=== PATIENT | female | born 1980 | race Caucasian/White ===

== ENCOUNTER 2018-02-22 08:33 | Day surgery (SDC) | payer OTHER ==
[~2018-02-22 08:33] MED LIST: ceFAZolin 2 GM/50 ML 2 GM/50 ML BAG IV ONE
[2018-02-22] MEDS ORDERED: LACTATED RINGERS 1,000 ML IV ONE (08:38)
[2018-02-22 08:56] LABS: HCG UR QUAL NEGATIVE
[2018-02-22] MEDS ORDERED: ceFAZolin 1 GM VIAL ONE (10:28)
[2018-02-22] MEDS ORDERED: LIDOCAINE 1%-EPI 1:100000 30 ML MDV ONE (10:31)
[2018-02-22] MEDS ORDERED: BUPIVACAINE 0.5% PF 30 ML VIAL ONE (10:31)
[2018-02-22] MEDS ORDERED: BUPIVACAINE 0.5% PF 30 ML VIAL INFIL ONE ×2 (12:00)
[2018-02-22] MEDS ORDERED: fentaNYL 100 MCG/2 ML VIAL IVP ONE (12:30)
[2018-02-22] MEDS ORDERED: MIDAZOLAM 2 MG/2 ML VIAL IV ONE (12:30)
[2018-02-22] MEDS ORDERED: KETOROLAC 30 MG/ML VIAL IVP ONE (12:30)
[2018-02-22] MEDS ORDERED: PROPOFOL 200 MG/20 ML VIAL IVP ONE (12:30)
[2018-02-22] MEDS ORDERED: oxyCOD/ACETAMIN 5 MG/325 MG TABLET PO ONE (13:26)
[2018-02-22 13:43] VITALS: BP 124/90
--- NOTE | 2018-02-23 15:31 | OPERATIVE REPORT ---
DATE OF SERVICE: 02/22/2018 Physician: Og Moseley MD PREOPERATIVE DIAGNOSIS: Symptomatic umbilical hernia. POSTOPERATIVE DIAGNOSIS: Symptomatic umbilical hernia. PROCEDURE PERFORMED: Open repair of symptomatic umbilical hernia with Ventralex soft tissue patch. ANESTHESIA: Local plus monitored anesthesia care. SURGEON: Og Moseley MD ESTIMATED BLOOD LOSS: Minimal. DRAINS: None. COMPLICATIONS: None. FINDINGS: A 2 cm fascial defect was present at the umbilicus with preperitoneal fat comprising the contents of the hernia sac. INDICATIONS: Jil Reed is a 37-year-old woman with an increasingly painful and enlarging umbilical bulge. Examination revealed a reducible umbilical hernia. She was advised to undergo repair. TECHNIQUE: After informed consent, the patient was taken to the operating room where she was sedated and monitored. Preoperative preparation included application of sequential calf compression boots and administration of 2 grams of cefazolin intravenously within an hour of the incision. Her periumbilical region was prepped with iodoform solution, following which a field block was instituted using a 50:50 combination of 0.5% Marcaine plain and 1% lidocaine with epinephrine. A total of 20 mL of the mixture was used. The patient was then re-prepared with ChloraPrep solution, and draped in the usual sterile fashion. A transverse curvilinear infraumbilical incision was made approximately 4-5 cm in length, and carried down to the subcutaneous tissues. Hemostasis was achieved with electrocautery. The umbilical dermis was dissected off of the underlying hernia sac, which was mobilized circumferentially. The anterior fascia was exposed circumferentially around the neck of the hernia sac. The hernia sac was excised and discarded. Hernia contents were reduced into the peritoneal cavity. The fascial edges were identified and mobilized circumferentially, and undermined a sufficient distance to allow placement of the patch in a preperitoneal position. After hemostasis was assured, a size small Ventralex patch, which been soaked in antibiotic solution containing 1 gram of cefazolin and 250 mL of saline, was placed in the preperitoneal position and held in place with the strap, while the fascial edges were reapproximated transversely with interrupted 0 Ethibond sutures, incorporating the strap with the sutures. Approximately 4 sutures were used. Excess strap was excised and discarded. After hemostasis was assured, the wound was again irrigated with the antibiotic solution following which wound closure was accomplished in layers using 2-0 Vicryl to reapproximate the umbilical dermis to the midline fascia, and also to reapproximate the deep subcutaneous tissues, followed by 3-0 Vicryl for the superficial subcutaneous tissues, followed by 4-0 Monocryl and Dermabond. The procedure was then terminated, without apparent complication. She was transferred out of the operating room in satisfactory condition. Sponge and needle counts were correct x2, and no drains were used. TD: 02/23/2018 13:31
== END 2018-02-22 08:34 | disposition home or self-care (01) ==
LOC: SDS 08:33
PROVIDERS: ATTEND Internal Medicine Gastroenterology
PROC: 0WUF0JZ Supplement Abdominal Wall with Synthetic Substitute, Open Approach (ICD-10-PCS; principal; 2018-02-22 09:30)
DX: K42.9 Umbilical hernia without obstruction or gangrene (principal); E78.5 Hyperlipidemia, unspecified; E11.9 Type 2 diabetes mellitus without complications; Z79.84 Long term (current) use of oral hypoglycemic drugs
CPT/HCPCS: 49585; 81025; A9270; C1781; J0690; J7120

== ENCOUNTER 2020-12-05 09:18 | Emergency (ER) | payer OTHER ==
--- NOTE | 2020-12-05 09:45 | XRAY Report ---
PROCEDURE: Chest 1 View X-Ray INDICATIONS: Chest pain TECHNIQUE: One view of the chest was acquired. COMPARISON: None. FINDINGS: Surgical changes and devices: None. Lungs and pleura: No pleural effusions or pneumothorax. Lungs are clear. Mediastinum: Mediastinal contours appear normal. Heart size is normal. Bones and chest wall: No suspicious bony lesions. Overlying soft tissues appear unremarkable. IMPRESSION: No acute finding. Reviewed by: Gilmar Rosado MD on 12/05/2020 9:43 AM PDT Approved by: Gilmar Rosado MD on 12/05/2020 9:43 AM PDT Station ID: [id number]
--- NOTE | 2020-12-05 09:52 | ED Physician Documentation ---
PD HPI ABD PAIN - Stated complaint Stated Complaint: CHEST PX/SOA - Chief complaint Chief Complaint: Cardiac - History obtained from History obtained from: Patient - History of Present Illness Timing - onset: Last night Timing - duration: Hours Timing - details: Gradual onset, Still present Quality: Sharp, Pain Location: RUQ Radiation: Chest Improved by: Laying still Worsened by: Breathing, Palpation Associated symptoms: Nausea, Diarrhea. No: Fever Similar symptoms before: Has not had sx before Recently seen: Not recently seen - Additional information Additional information: Previously well 40-year-old female with a history of hyperlipidemia had mac & cheese and chicken nuggets for dinner last night and shortly after that developed some severe diarrhea and she eventually developed right upper quadrant abdominal pain that was worse with worse with inspiration. At about 2:30 in the morning her pain peaked and she is coming to the emergency department today with persistent pain and she did have an episode of chest pain radiating across her chest at about 2:30 in the morning. She feels that she is having some difficulty with her breathing because of the pain associated with this. Review of Systems Constitutional: denies: Fever Nose: denies: Congestion Throat: denies: Sore throat Cardiac: denies: Chest pain / pressure, Palpitations Respiratory: denies: Dyspnea, Cough GI: reports: Abdominal Pain, Nausea, Diarrhea : denies: Dysuria, Frequency Skin: denies: Rash Musculoskeletal: denies: Neck pain, Back pain, Extremity pain Neurologic: denies: Generalized weakness, Focal weakness PD PAST MEDICAL HISTORY - Past Medical History Cardiovascular: None Respiratory: None Endocrine/Autoimmune: Type 2 diabetes GI: None : None HEENT: None Psych: None Musculoskeletal: None Derm: None - 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: Breast 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, LEEP (Cervical surgery) - Present Medications Home Medications: Ambulatory Orders Medication Instructions Recorded Confirmed Ergocalciferol [Vitamin D2] 50,000 unit PO Q7D 02/19/18 12/05/20 Doxycycline Hyclate 100 mg PO BID #20 tab 12/05/20 Drospir/Eth Estra/Levomefol Ca 1 tab PO DAILY 12/05/20 12/05/20 [Beyaz 28 Tablet] Ezetimibe [Zetia] 10 mg PO DAILY 12/05/20 12/05/20 Loratadine 10 mg PO DAILY 12/05/20 12/05/20 Sitagliptin Phos/Metformin HCl 1 tab PO DAILY 12/05/20 12/05/20 [Janumet Xr 50-1,000 mg Tablet] Venlafaxine ER [Effexor ER] 37.5 mg PO DAILY 12/05/20 12/05/20 - Allergies Allergies/Adverse Reactions: Allergies Allergy/AdvReac Type Severity Reaction Status Date / Time gatifloxacin Allergy Anaphylaxis Verified 12/05/20 09:57 promethazine [From Phenergan] Allergy Respiratory Verified 12/05/20 09:57 hydrocodone AdvReac Nausea Verified 12/05/20 09:57 PD ED PE NORMAL - Vitals Vital signs reviewed: Yes (tachy and hypertensive ) - General General: Alert and oriented X 3, No acute distress, Well developed/nourished - HEENT HEENT: Atraumatic, PERRL, EOMI - Neck Neck: Supple, no meningeal sign, No bony TTP - Cardiac Cardiac: No murmur, Other (tachy to 110) - Respiratory Respiratory: No respiratory distress, Clear bilaterally - Abdomen Abdomen: Normal bowel sounds, Soft, Non distended, No organomegaly, Other (There is RUQ tenderness to palpation and this is worse with inspiration. 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, No motor deficit, No sensory deficit, Normal speech Eye Opening: Spontaneous Motor: Obeys Commands Verbal: Oriented GCS Score: 15 - Psych Psych: Normal mood, Normal affect Results - Vitals Vitals: Vital Signs - 24 hr 12/05/20 12/05/20 12/05/20 09:22 09:33 11:26 Temperature 36.3 C L 36.5 C Heart Rate 122 H 116 H 106 H Respiratory 18 18 17 Rate Blood Pressure 142/99 H 142/96 H 129/87 H O2 Saturation 99 98 96 12/05/20 13:00 Temperature 36.6 C Heart Rate 108 H Respiratory 23 Rate Blood Pressure 129/81 H O2 Saturation 96 Oxygen O2 Source Room air - EKG (time done) 0925 Rate: Rate (enter#) (115) Rhythm: Sinus tachycardia Ischemia: Normal ST segments, Q waves Compare to prior EKG: Old EKG unavailable Computer interpretation: Agree with computer - Labs Labs: Laboratory Tests 12/05/20 12/05/20 12/05/20 09:42 09:42 09:42 WBC 14.2 H RBC 4.09 L Hgb 12.3 Hct 34.4 L MCV 84.1 MCH 30.1 MCHC 35.8 RDW 12.9 Plt Count 306 MPV 10.8 Neut # (Auto) 12.3 H Lymph # (Auto) 1.1 L [place] # (Auto) 0.6 Eos # (Auto) 0.1 Baso # (Auto) 0.1 Absolute Nucleated RBC 0.00 Nucleated RBC % 0.0 Sodium 137 Potassium 3.9 Chloride 102 Carbon Dioxide 18 L Anion Gap 17.0 H BUN 9 Creatinine 0.6 Estimated GFR (MDRD) 111 Glucose 161 H Calcium 9.2 Total Bilirubin 0.6 AST 35 ALT 28 Alkaline Phosphatase 68 Troponin I High Sens 3.2 Total Protein 5.7 L Albumin 3.7 Globulin 2.0 L Albumin/Globulin Ratio 1.9 Lipase 72 H - Rads (name of study) chest Radiology: Prelim report reviewed (Impression: No acute finding.), EMP read indepedently, See rad report RUQ u/s Radiology: Prelim report reviewed (Impression: Enlarged liver with increased echogenicity and coarse echotexture with suggestion of a mildly nodular contour of the liver. Findings are suggestive of diffuse hepatocellular disease such as cirrhosis.), EMP read indepedently, See rad report Chest CTA Radiology: Prelim report reviewed (Impression: No pulmonary embolism. Left mild left basilar atelectasis and groundglass opacity, potentially infectious.), EMP read indepedently, See rad report Procedures - IVC sono (time) 0550 Bedside IVC sono: IVC measures (cm) (1.12), Dehydration (est 1 liter deficit) PD MEDICAL DECISION MAKING - ED course Complexity details: reviewed old records, reviewed results, re-evaluated patient, considered differential, d/w patient ED course: 40-year-old female with history of hyperlipidemia presents to the emergency department with right upper quadrant abdominal pain she does have stones on bedside ultrasound examination and a tender gallbladder. She does not have evidence of cholecystitis on the bedside ultrasound exam. She does not have thickened gallbladder wall or pericholecystic fluid. She has mild tenderness to the gallbladder. She is found to be mildly dehydrated. She is administered intravenous saline a an ultrasound of the abdomen is ordered as well as a D- dimer with the patient's tachycardia and dyspnea. Patient has lipemic center serum and a D-dimer is not possible. Ultrasound of her gallbladder is unremarkable she does look like she has fatty liver and cirrhosis. She does not have cholecystitis. She remains tachycardic and is complaining of chest pain and a CT angio of the chest is obtained. She does not have pulmonary embolism she does have some trace amount of infection in the left base. Departure - Departure Disposition: 01 Home, Self Care Clinical Impression: Atypical chest pain Pneumonia Qualifiers: Pneumonia type: due to unspecified organism Laterality: left Lung location: lower lobe of lung Qualified Code(s): J18.9 - Pneumonia, unspecified organism Condition: Stable Instructions: ED Chest Pain Atypical Unkn Cause, ED Pneumonia Adult Follow-Up: BRAD JIMENEZ DO [Primary Care Provider] - Prescriptions: Doxycycline Hyclate 100 mg PO BID #20 tab
[2020-12-05 10:22] LABS: BASOPHILS # (AUTO) 0.1 10^3/uL (0.0-0.1); BASOPHILS % (AUTO) 0.4 %; EOSINOPHILS # (AUTO) 0.1 10^3/uL (0.0-0.7); EOSINOPHILS % (AUTO) 0.4 %; HCT - HEMATOCRIT 34.4 % (37.0-47.0); HGB - HEMOGLOBIN 12.3 g/dL (12.0-16.0); LYMPHOCYTES # (AUTO) 1.1 10^3/uL (1.5-3.5); LYMPHOCYTES % (AUTO) 7.8 %; MEAN CORPUSCULAR HEMOGLOBIN 30.1 pg (27.0-31.0); MEAN CORPUSCULAR HGB CONC 35.8 g/dL (32.0-36.0); MEAN CORPUSCULAR VOLUME 84.1 fL (81.0-99.0); MEAN PLATELET VOLUME 10.8 fL (7.9-10.8); MONOCYTES # (AUTO) 0.6 10^3/uL (0.0-1.0); MONOCYTES % (AUTO) 4.1 %; NEUTROPHILS # (AUTO) 12.3 10^3/uL (1.5-6.6); NEUTROPHILS % (AUTO) 86.9 %; PLT - PLATELET COUNT 306 10^3/uL (130-450); RED BLOOD COUNT 4.09 10^6/uL (4.20-5.40); RED CELL DISTRIBUTION WIDTH 12.9 % (12.0-15.0)
[2020-12-05 10:26] LABS: WHITE BLOOD COUNT 14.2 x10^3/uL (4.8-10.8)
[2020-12-05 10:53] LABS: ALBUMIN 3.7 g/dL (3.2-5.5); ALBUMIN/GLOBULIN RATIO 1.9 (1.0-2.2); BILIRUBIN,TOTAL 0.6 mg/dL (0.2-1.0); CALCIUM 9.2 mg/dL (8.5-10.3); CREATININE 0.6 mg/dL (0.4-1.0); POTASSIUM 3.9 mmol/L (3.5-5.0); TOTAL PROTEIN 5.7 g/dL (6.7-8.2)
--- NOTE | 2020-12-05 11:05 | Ultrasound Report ---
PROCEDURE: Abdomen Limited INDICATIONS: RUQ pain TECHNIQUE: Real-time focused scanning was performed of the abdomen, with image documentation. COMPARISON: None FINDINGS: Mildly enlarged liver measuring up to 19 cm in maximum transverse dimension. Increased hepatic parenc hymal echogenicity and coarsened hepatic echotexture. Mildly nodular appearance to the hepatic surfac e. No focal hepatic mass. No intrahepatic or extrahepatic biliary ductal dilatation. Gallbladder is unremarkable. Grossly normal appearance of the pancreas. No hydronephrosis or shadowing calculus in the right kidney. IMPRESSION: Enlarged liver with increased echogenicity and coarsened echotexture with suggestion of a mildly nodu lar contour of the liver. Is findings are suggestive of diffuse hepatocellular disease such as cirrho sis. Reviewed by: Gilmar Rosado MD on 12/05/2020 11:04 AM PDT Approved by: Gilmar Rosado MD on 12/05/2020 11:04 AM PDT Station ID: [id number]
[2020-12-05] MEDS ORDERED: IOVERSOL 320 100 ML VIAL IVP ONE ×2 (13:28→21:59)
--- NOTE | 2020-12-05 13:52 | CT Report ---
PROCEDURE: ANGIO CHEST W/WO INDICATIONS: Chest pain, dyspnea, tachycardia CONTRAST: IV CONTRAST: Optiray 320 ml: 80 PO CONTRAST: *NO PO CONTRAST TECHNIQUE: After the administration of intravenous contrast, 2 mm thick sections acquired from the pulmonary api gilbert to the posterior costophrenic angles. 3-dimensional maximum intensity projection (MIP) coronal a nd sagittal reformats were then acquired through the thorax. For radiation dose reduction, the follow ing was used: automated exposure control, adjustment of mA and/or kV according to patient size. COMPARISON: 11/25/2020 chest radiograph FINDINGS: Image quality: Excellent. Pulmonary arteries: Pulmonary arteries are normal in size, and demonstrate no intraluminal filling d efects to suggest central pulmonary embolism. Lungs and pleura: Mild groundglass opacity in the left lung base along with streaky atelectasis. No p leural effusions or pneumothorax. Central and peripheral airways are patent. Mediastinum: Heart size is normal, without pericardial effusion. No mediastinal or hilar adenopathy . Thoracic aorta is normal in caliber and enhancement. Esophagus is normal in caliber, without hiat al hernia. Bones and chest wall: No suspicious bony lesions. Ribs and thoracic spine appear intact throughout. The thyroid is normal. No axillary or supraclavicular adenopathy. Abdomen: Visualized upper abdominal solid organs appear normal in the early arterial phase of enhanc ement. IMPRESSION: No pulmonary embolism. Mild left basilar atelectasis and groundglass opacity, potentially infectious. Reviewed by: Gilmar oRsado MD on 12/05/2020 1:51 PM PDT Approved by: Gilmar Rosado MD on 12/05/2020 1:51 PM PDT Station ID: [id number]
[2020-12-05] MEDS ORDERED: KETOROLAC 30 MG/ML VIAL IVP STA (14:11)
[2020-12-05] MEDS ORDERED: DEXAMETHASONE 10 MG/ML VIAL IVP STA (14:11)
[2020-12-05 14:19] VITALS: BP 132/87
[2020-12-05] MEDS ORDERED: SODIUM CHLORIDE 0.9% 1,000 ML IV STA (14:36)
--- OUTSIDE RECORDS SUMMARY | 2020-12-11 23:41 | EXTERNAL MEDICAL SUMMARY RPT | Continuity of Care Document ---
:1980 Demographics Phone Unavailable Preferred Language Unknown Marital Status Unknown Denominational Affiliation Unknown Race Unknown Ethnic Group Unknown Author Organization [facility] Address [address] [phone] Phone Social History date description facility [phone]
== END 2020-12-05 14:45 | disposition home or self-care (01) ==
LOC: ED 09:18
DX: R07.89 Other chest pain (principal); J18.9 Pneumonia, unspecified organism; E86.0 Dehydration; R00.0 Tachycardia, unspecified; R10.11 Right upper quadrant pain; R19.7 Diarrhea, unspecified; K74.60 Unspecified cirrhosis of liver; K76.0 Fatty (change of) liver, not elsewhere classified; E78.5 Hyperlipidemia, unspecified; E11.9 Type 2 diabetes mellitus without complications; Z79.84 Long term (current) use of oral hypoglycemic drugs
CPT/HCPCS: 36415; 71045; 71275; 76705; 80053; 83690; 84484; 85025; 93005; 96374; 96375; 99284; Q9967; 85379

== ENCOUNTER 2020-12-06 20:23 | Inpatient (IN) | payer OTHER ==
[2020-12-06 21:03] LABS: BILIRUBIN,URINE NEGATIVE (NEGATIVE); GLUCOSE, URINE (UA) NEGATIVE (NEGATIVE); KETONES,URINE (UA) NEGATIVE (NEGATIVE); LEUKOCYTE ESTERASE, URINE NEGATIVE (NEGATIVE); NITRITE,URINE NEGATIVE (NEGATIVE); OCCULT BLOOD,URINE MODERATE (NEGATIVE); PH,URINE 5.5 PH (5.0-7.5); PROTEIN,URINE TRACE mg/dL (NEGATIVE); UROBILINOGEN,URINE 0.2 (NORMAL) E.U./dL (NORMAL)
[2020-12-06 21:04] LABS: CLARITY,URINE CLEAR (CLEAR)
--- NOTE | 2020-12-06 21:06 | ED Physician Documentation ---
PD HPI ABD PAIN - Stated complaint Stated Complaint: ABD PX - Chief complaint Chief Complaint: Abd Pain - History obtained from History obtained from: Patient - History of Present Illness Timing - onset: How many days ago (2) Timing - duration: Days Timing - details: Gradual onset, Constant, Waxing and waning Pain level now: 8 Quality: Pain Location: Other (across upper abdomen, predominantly epigastric) Radiation: Other (does not radiate) Improved by: Other (nothing) Worsened by: Palpation Associated symptoms: No: Fever, Nausea, Vomiting, Diarrhea, Constipation Recently seen: Emergency Dept - Additional information Additional information: patient c/o upper abdominal pain since 12/04/20 without inciting event, and without exacerbating or ameliorating factors. She has not had this pain prior to this. She was T+R yesterday from this ED. She was eventually diagnosed with LRTI and prescribed doxycycline. She presents due to ongoing, constant upper abdominal pain. It is worse with palpation, but it is otherwise constant at level of 7-8 and thus no ameliorating factors have been noted. Review of Systems Constitutional: denies: Fever, Chills, Sweats Eyes: reports: Reviewed and negative Ears: reports: Reviewed and negative Nose: reports: Reviewed and negative Throat: reports: Reviewed and negative Cardiac: reports: Reviewed and negative Respiratory: reports: Reviewed and negative GI: reports: Abdominal Pain. 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, LEEP (Cervical surgery) - Present Medications Home Medications: Ambulatory Orders Medication Instructions Recorded Confirmed Ergocalciferol [Vitamin D2] 50,000 unit PO Q7D 02/19/18 12/05/20 Doxycycline Hyclate 100 mg PO BID #20 tab 12/05/20 Drospir/Eth Estra/Levomefol Ca 1 tab PO DAILY 12/05/20 12/05/20 [Beyaz 28 Tablet] Ezetimibe [Zetia] 10 mg PO DAILY 12/05/20 12/05/20 Loratadine 10 mg PO DAILY 12/05/20 12/05/20 Sitagliptin Phos/Metformin HCl 1 tab PO DAILY 12/05/20 12/05/20 [Janumet Xr 50-1,000 mg Tablet] Venlafaxine ER [Effexor ER] 37.5 mg PO DAILY 12/05/20 12/05/20 - Allergies Allergies/Adverse Reactions: Allergies Allergy/AdvReac Type Severity Reaction Status Date / Time gatifloxacin Allergy Anaphylaxis Verified 12/06/20 20:31 promethazine [From Phenergan] Allergy Respiratory Verified 12/06/20 20:31 hydrocodone AdvReac Nausea Verified 12/06/20 20:31 - Social History Does the pt smoke?: No Smoking Status: Never smoker Does the pt drink ETOH?: No Does the pt have substance abuse?: No - Immunizations Immunizations are current?: Yes PD ED PE NORMAL - Vitals Vital signs reviewed: Yes - General General: Alert and oriented X 3, No acute distress, Well developed/nourished - HEENT HEENT: Other (tacky/pasty mucous membranes) - Neck Neck: Supple, no meningeal sign - Cardiac Cardiac: No murmur - Respiratory Respiratory: No respiratory distress, Clear bilaterally - Abdomen Abdomen: Soft, Non distended, Other (TTP epigastrium>RUQ without guarding or rebound) - Back Back: No CVA TTP - Derm Derm: Normal color, Warm and dry, No rash - Extremities Extremities: No edema - Neuro Neuro: Alert and oriented X 3 PD ED PE EXPANDED - Cardiac Cardiac: Tachy, Regular Rhythm Results - Vitals Vitals: Vital Signs - 24 hr 12/06/20 12/06/20 12/06/20 20:27 20:34 20:38 Temperature 36.4 C L 36.4 C L Heart Rate 125 H 125 H 127 H Respiratory 18 18 Rate Blood Pressure 130/73 130/73 O2 Saturation 99 99 12/06/20 12/07/20 12/07/20 22:48 00:14 00:15 Temperature Heart Rate 120 H 118 H 117 H Respiratory 17 15 Rate Blood Pressure 105/64 113/65 O2 Saturation 99 96 Oxygen O2 Source Room air - Labs Labs: Laboratory Tests 12/06/20 12/06/20 12/06/20 20:42 20:42 21:31 WBC 12.2 H RBC 3.92 L Hgb 11.6 L Hct 32.7 L MCV 83.4 MCH 29.6 MCHC 35.5 RDW 13.0 Plt Count 252 MPV 10.3 Neut # (Auto) 10.0 H Lymph # (Auto) 1.4 L Frio # (Auto) 0.8 Eos # (Auto) 0.1 Baso # (Auto) 0.0 Absolute Nucleated RBC 0.00 Nucleated RBC % 0.0 Sodium Potassium Chloride Carbon Dioxide Anion Gap BUN Creatinine Estimated GFR (MDRD) Glucose Calcium Total Bilirubin AST ALT Alkaline Phosphatase Total Protein Albumin Globulin Albumin/Globulin Ratio Triglycerides Cholesterol LDL Cholesterol Direct LDL Cholesterol, Calc VLDL Cholesterol HDL Cholesterol LDL/HDL Ratio dLDL/HDL Ratio Cholesterol/HDL Ratio Amylase Lipase Urine Color YELLOW Urine Clarity CLEAR Urine pH 5.5 Ur Specific [place] >=1.030 H Urine Protein TRACE Urine Glucose (UA) NEGATIVE Urine Ketones NEGATIVE Urine Occult Blood MODERATE H Urine Nitrite NEGATIVE Urine Bilirubin NEGATIVE Urine Urobilinogen 0.2 (NORMAL) Ur Leukocyte Esterase NEGATIVE Urine RBC 6-10 H Urine WBC 0-3 Ur Squamous Epith Cells FEW Squamous Urine Bacteria Rare Urine Mucus Few Strands Ur Microscopic Review INDICATED Urine Culture Comments NOT INDICATED Urine HCG, Qual NEGATIVE 12/06/20 12/06/20 21:31 21:31 WBC RBC Hgb Hct MCV MCH MCHC RDW Plt Count MPV Neut # (Auto) Lymph # (Auto) Frio # (Auto) Eos # (Auto) Baso # (Auto) Absolute Nucleated RBC Nucleated RBC % Sodium 138 Potassium 2.9 L Chloride 102 Carbon Dioxide 23 Anion Gap 11.0 BUN 12 Creatinine 0.5 Estimated GFR (MDRD) 137 Glucose 156 H Calcium 8.0 L Total Bilirubin 0.7 AST 67 H ALT 76 H Alkaline Phosphatase 54 Total Protein 5.8 L Albumin 3.1 L Globulin 2.2 Albumin/Globulin Ratio 1.4 Triglycerides > 2000 H Cholesterol 996 H LDL Cholesterol Direct Not Reportable LDL Cholesterol, Calc Not Reportable VLDL Cholesterol Not Reportable HDL Cholesterol [place] LDL/HDL Ratio Not Reportable dLDL/HDL Ratio Not Reportable Cholesterol/HDL Ratio 36.9 Amylase 69 Lipase 62 H Urine Color Urine Clarity Urine pH Ur Specific [place] Urine Protein Urine Glucose (UA) Urine Ketones Urine Occult Blood Urine Nitrite Urine Bilirubin Urine Urobilinogen Ur Leukocyte Esterase Urine RBC Urine WBC Ur Squamous Epith Cells Urine Bacteria Urine Mucus Ur Microscopic Review Urine Culture Comments Urine HCG, Qual - Rads (name of study) CT A/P with IV contrast Radiology: Prelim report reviewed, See rad report PD MEDICAL DECISION MAKING - ED course Complexity details: reviewed old records, reviewed results, re-evaluated patient, considered differential, d/w patient ED course: CT A/P demonstrates "acute pancreatitis with considerable inflammatory stranding upper abdomen" (per radiologist's interpretation). Etiology is likely hypertriglyceridemia-induced, with markedly elevated triglycerides on tonight's testing. Case d/w Dr. Leal, will admit to [facility] Departure - Departure Disposition: 66 [facility] DC/Xfer Clinical Impression: Pancreatitis Condition: Good Discharge Date/Time: 12/07/20 04:38
[2020-12-06 21:13] LABS: BACTERIA,URINE Rare /HPF (None Seen); MUCUS,URINE Few Strands; SQUAMOUS EPITHELIAL CELL,UR FEW Squamous (<= Few); WBC,URINE 0-3 /HPF (0-5)
[2020-12-06] MEDS ORDERED: KETOROLAC 30 MG/ML VIAL IVP STA (21:31)
[2020-12-06 21:35] LABS: BASOPHILS % (AUTO) 0.3 %; EOSINOPHILS # (AUTO) 0.1 10^3/uL (0.0-0.7); EOSINOPHILS % (AUTO) 0.7 %; HCT - HEMATOCRIT 32.7 % (37.0-47.0); HGB - HEMOGLOBIN 11.6 g/dL (12.0-16.0); LYMPHOCYTES # (AUTO) 1.4 10^3/uL (1.5-3.5); LYMPHOCYTES % (AUTO) 11.3 %; MEAN CORPUSCULAR HEMOGLOBIN 29.6 pg (27.0-31.0); MEAN CORPUSCULAR HGB CONC 35.5 g/dL (32.0-36.0); MEAN CORPUSCULAR VOLUME 83.4 fL (81.0-99.0); MEAN PLATELET VOLUME 10.3 fL (7.9-10.8); MONOCYTES # (AUTO) 0.8 10^3/uL (0.0-1.0); MONOCYTES % (AUTO) 6.2 %; NEUTROPHILS % (AUTO) 81.3 %; PLT - PLATELET COUNT 252 10^3/uL (130-450); RED BLOOD COUNT 3.92 10^6/uL (4.20-5.40); WHITE BLOOD COUNT 12.2 x10^3/uL (4.8-10.8)
[2020-12-06] MEDS ORDERED: IOVERSOL 320 100 ML VIAL IVP ONE ×2 (21:48→23:27)
[2020-12-06] MEDS ORDERED: SODIUM CHLORIDE 0.9% 1,000 ML IV STA (21:58)
[2020-12-06 22:44] LABS: ALBUMIN 3.1 g/dL (3.2-5.5); ALBUMIN/GLOBULIN RATIO 1.4 (1.0-2.2); BILIRUBIN,TOTAL 0.7 mg/dL (0.2-1.0); CREATININE 0.5 mg/dL (0.4-1.0); POTASSIUM 2.9 mmol/L (3.5-5.0); TOTAL PROTEIN 5.8 g/dL (6.7-8.2)
[2020-12-06 23:08] LABS: CHOL/HDL RATIO 36.9 (<4.4); CHOLESTEROL 996 mg/dL
[2020-12-06 23:09] LABS: TRIGLYCERIDES > 2000 mg/dL
[2020-12-07] MEDS ORDERED: INSULIN REGULAR HUMAN 100 UNIT in SODIUM CHLORIDE 0.9% 100ML 99 ML IV STA (00:47)
[2020-12-07] MEDS ORDERED: SODIUM CHLORIDE 0.9% 1,000 ML IV STA (00:48)
[2020-12-07] MEDS ORDERED: D5.45NS W/20 MEQ KCL 1,000 ML IV STA (00:48)
[2020-12-07] MEDS ORDERED: ONDANSETRON 4 MG/2 ML VIAL IVP PRN (00:52)
[2020-12-07] MEDS ORDERED: ONDANSETRON ODT 4 MG TABLET TL PRN (00:52)
[2020-12-07] MEDS ORDERED: D5.45NS W/20 MEQ KCL 1,000 ML IV SCH (01:00)
--- NOTE | 2020-12-07 01:00 | HISTORY & PHYSICAL EXAMINATION ---
Chief Complaint - Chief Complaint Chief Complaint: Abdominal pain History of Present Illness - Admitted From Admitted From:: Home - History Obtained From Records Reviewed: Yes History obtained from: Patient, ER Physician, EMR - History of Present Illness HPI Comment/Other: This is a very pleasant 40-year-old female with a past medical history signif icant for migraines and type 2 diabetes mellitus who presents today complaining of abdominal pain. She states her symptoms have been present for a few days now and she was seen in the emergency department and at that time was felt her pain was more related to chest pain she was diagnosed with possible pneumonia and discharged home on doxycycline. She states her pain persisted and is located over the epigastric and is about an 8 out of 10. It became more prominent and so she came back to the emergency department today. She reports no nausea or vomiting. She is able to tolerate a diet and her pain is not worse with eating. She reports no fevers or chills. She reports her stools have been soft the past few days but no diarrhea. No dysuria, urgency. She states she was just switched to Janumet from Metformin alone about a week ago for her diabetes. She is on Zetia for history of hyperlipidemia. She states her triglycerides were quite elevated in the past and it had come down but only to the 700s on fenofibrate and so she was switched to Zetia by her primary care physician. She reports no prior history of pancreatitis. In the emergency department, she was found to be afebrile. She was tachycardic with a heart rate in the 120s. She was normotensive with a blood pressure in the 120s. She was not tachypneic and saturating well on room air. Labs were significant for a white count of 12.2 which was improved compared to yesterday. Her potassium was 2.9. Her AST and ALT were mildly elevated in the 60s and 70s which is new compared to labs from yesterday. Her T bili is normal. Lipase was 62 and her amylase was 69. Her blood was noted to be lipemic and so the panel was obtained which showed triglycerides greater than 2000. She underwent a CT of the abdomen pelvis which did show cholelithiasis without gallbladder distention. There was also evidence of acute pancreatitis with considerable inflammatory stranding across the upper area of the abdomen. Given the above findings, medicine was consulted for admission. 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 She believes her mother has hypertension. No family history of malignancy. Living arrangement: At home Living Situation: With family Social History Notes: She lives at home with her and 2 children. 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 She will have one alcoholic beverage a year. She does not smoke. Meds/Allgy - Home Medications Home Medications: Ambulatory Orders Medication Instructions Recorded Confirmed Ergocalciferol [Vitamin D2] 50,000 unit PO .Thursday02/19/18 12/07/20 Ezetimibe [Zetia] 10 mg PO DAILY 12/05/20 12/07/20 Sitagliptin Phos/Metformin HCl 1 tab PO DAILY 12/05/20 12/07/20 [Janumet Xr 50-1,000 mg Tablet] Venlafaxine ER [Effexor ER] 37.5 mg PO DAILY 12/05/20 12/07/20 Atorvastatin [Lipitor] 20 mg PO QPM 12/07/20 12/07/20 Ethinyl Estradiol/Drospirenone 1 tablet PO DAILY 12/07/20 12/07/20 [Ocella 3 mg-0.03 mg Tablet] Loratadine [Allergy Relief] 10 mg PO DAILY 12/07/20 12/07/20 Verapamil HCl [Calan Sr] 120 mg PO DAILY 12/07/20 12/07/20 - Allergies Allergies/Adverse Reactions: Allergies Allergy/AdvReac Type Severity Reaction Status Date / Time gatifloxacin Allergy Anaphylaxis Verified 12/06/20 20:31 promethazine [From Phenergan] Allergy Respiratory Verified 12/06/20 20:31 hydrocodone AdvReac Nausea Verified 12/06/20 20:31 Review of Systems - Constitutional Constitutional: denies: Fatigue, Malaise, Poor appetite - Eyes Eyes: denies: Blurred vision - Ears, Nose & Throat Ears, Nose & Throat: reports: Postnasal drainage. denies: Nasal discharge, Sore throat - Cardiovascular Cariovascular: reports: Chest pain. denies: Palpitations, Lightheadedness, Syncope, Exertional dyspnea, Decr. exercise tolerance - Respiratory Respiratory: denies: Cough, SOB at rest, SOB with exertion - Gastrointestinal Gastrointestinal: reports: Abdominal pain, Change in bowel habits, Reflux /heartburn. denies: Constipation, Diarrhea, Black stools, Bloody stools, Nausea, Vomiting, Poor appetite - Genitourinary Genitourinary: denies: Dysuria, Frequency, Urgency, Hematuria - Musculoskeletal Musculoskeletal: denies: Muscle pain, Limited range of motion - Integumentary Integumentary: denies: Rash - Neurological Neurological: reports: Headache. denies: General weakness, Focal weakness, Dizziness, Numbness - Psychiatric Psychiatric: denies: Depression, Anxiety - All Other Systems All Other Systems: reports: Reviewed and negative Prior Level of Functionality: She is independent with her ADLs. Exam - Vital Signs Reviewed Vital Signs: Yes Vital Signs: Vital Signs x48h Temp Pulse Resp BP Pulse Ox 12/07/20 00:15 117 H 12/07/20 00:14 118 H 15 113/65 96 12/06/20 22:48 120 H 17 105/64 99 12/06/20 20:38 127 H 12/06/20 20:34 36.4 C L 125 H 18 130/73 99 12/06/20 20:27 36.4 C L 125 H 18 130/73 99 - Physical Exam General Appearance: positive: No acute distress, Alert Eyes Bilateral: positive: Normal inspection, Conjunctivae nml Neck: positive: Nml inspection Respiratory: positive: No respiratory distress. negative: Wheezes, Rales Cardiovascular: positive: No murmur, Tachycardia. negative: Irregularly irregular, Bradycardia, Systolic murmur Abdomen: positive: Nml bowel sounds, No distention, Tenderness (She is tender in the epigastric region.). negative: Guarding, Rebound Skin: positive: Warm, Dry Extremities: positive: Full ROM, No pedal edema Neurologic/Psychiatric: positive: Oriented x3, Motor nml. negative: Disoriented to person, Disoriented to place, Disoriented to time Conclusion/Plan - Problem List (1) Pancreatitis Conclusion/Plan: Although her lipase and amylase were normal, she has findings of pancreatitis on imaging and her abdominal pain is consistent with this. I suspect this is related to her hypertriglyceridemia but this also could be due to Janumet which is a new medication for her diabetes. She does not drink alcohol. Although the CT did show cholelithiasis, ultrasound obtained yesterday in the emergency department did not reveal any cholelithiasis. At this time, we will admit her to the intensive care unit for IV insulin given the hypertriglyceridemia. We will place her on insulin drip along with D5/half-normal. We will start her on a clear liquid diet as she is tolerating p.o. Zofran as needed for nausea. Morphine and Toradol as needed for pain control. Will check lipid panel every 12 hours until her triglycerides are less than 500 and then we will discontinue the insulin drip. The Janumet will need to be discontinued on discharge. Will ask radiology to review the ultrasound given there was evidence of cholelithiasis on CT and this episode of pancreatitis although there are other obvious etiologies at this time. Qualifiers: Chronicity: acute Pancreatitis type: other Acute pancreatitis complication: no infection or necrosis Qualified Code(s): K85.80 - Other acute pancreatitis without necrosis or infection (2) Hypertriglyceridemia Conclusion/Plan: She has a known history of hypertriglyceridemia and is on Zetia at home. She was previously on fenofibrate but this was discontinued as her triglycerides were still elevated in the 700s. They are now greater than 2000. We will discontinue Zetia and place her back on fenofibrate in the morning. Management of her pancreatitis as mentioned above. (3) Cholelithiasis Conclusion/Plan: There was evidence of cholelithiasis on the CT of the abdomen pelvis but this was not present on the ultrasound completed the day prior. Her AST and ALT are mildly elevated today. We will recheck LFTs in the morning. There are other obvious causes of her pancreatitis but if these are treated she has recurrent episodes, a cholecystectomy should be considered. (4) Controlled type 2 diabetes mellitus Conclusion/Plan: She believes her last A1c was 6.7%. She is on Janumet at home. She will be placed on IV insulin drip given the pancreatitis due to hypertriglyceridemia. Janumet will need to be discontinued on discharge and we can consider just Metformin alone or diet control. I have already told her that Janumet will need to be discontinued and we can consider other therapies over the next few days. (5) History of migraine Conclusion/Plan: Stable. She reports a mild headache at this time which she attributes to fatigue given it is 1 AM. We will continue her venlafaxine. - Lab Results Lab results reviewed: Yes Fish Bones: 12/07/20 05:00 12/07/20 07:25 - Diagnostic Imaging Results Diagnostic Imaging Results: positive: Prelim report reviewed Core Measures - Anticipated LOS I expect patient to be DC'd or transferred within 96 hours.: Yes - Issues Hospital Issues and Management Plan: 40-year-old female with known hypertriglyceridemia presents with abdominal pain found to have pancreatitis. We will admit to the ICU for IV insulin and dextrose. - DVT/VTE - Prophylaxis VTE/DVT Device ordered at admit?: Yes - Stroke - Rehab Assessment Rehab services assessment to be ordered?: Yes
[2020-12-07] MEDS ORDERED: INSULIN REGULAR HUMAN 100 UNIT/1 ML 10 ML MDV ONE (01:08)
[2020-12-07] MEDS ORDERED: KETOROLAC 30 MG/ML VIAL IVP PRN (02:59)
[2020-12-07] MEDS ORDERED: KETOROLAC 30 MG/ML VIAL IVP STA (03:04)
[2020-12-07 03:08] LABS: B. PARAPERTUSSIS- RESP PCR PAN NOT DETECTED; B. PERTUSSIS- RESP PCR PANEL NOT DETECTED; C. PNEUMONIAE- RESP PCR PANEL NOT DETECTED; CORONAVIRUS 229E-RESP PCR NOT DETECTED; CORONAVIRUS HKU1-RESP PCR NOT DETECTED; CORONAVIRUS NL63-RESP PCR NOT DETECTED; CORONAVIRUS OC43-RESP PCR NOT DETECTED; HUMAN METAPNEUMOVIRUS NOT DETECTED; INFLUENZA A- RESP PCR PANEL NOT DETECTED; INFLUENZA B - RESP PCR PANEL NOT DETECTED; M. PNEUMONIAE- RESP PCR PANEL NOT DETECTED; PARAINFLUENZA VIRUS 1 NOT DETECTED; PARAINFLUENZA VIRUS 2 NOT DETECTED; PARAINFLUENZA VIRUS 3 NOT DETECTED; PARAINFLUENZA VIRUS 4 NOT DETECTED; RHINOVIRUS/ENTEROVIRUS NOT DETECTED; RSV- RESP PCR PANEL NOT DETECTED; SARS-CoV-2 -RESP PCR PANEL NOT DETECTED
[2020-12-07 03:32] LABS: HCG UR QUAL NEGATIVE
[2020-12-07] MEDS: ACETAMINOPHEN 325 MG TABLET PO PRN ×3 (05:06→21:17)
[2020-12-07] MEDS: VENLAFAXINE ER 37.5 MG CAPSULE PO SCH ×2 (05:07→20:18)
[2020-12-07] MEDS: LORATADINE 10 MG TABLET PO SCH ×2 (05:07→20:18)
[2020-12-07] MEDS: MORPHINE 2 MG/ML CARPUJECT IVP PRN ×5 (05:10→20:20)
[2020-12-07] MEDS: INSULIN REGULAR HUMAN 100 UNIT in SODIUM CHLORIDE 0.9% 100ML 99 ML IV SCH ×2 (05:14→05:55)
[2020-12-07] MEDS: SODIUM CHLORIDE FLUSH 0.9% 10 ML SYRINGE IVP SCH ×3 (05:37→17:17)
[2020-12-07] MEDS ORDERED: LACTATED RINGERS 1,000 ML IV ONE ×2 (06:57→22:53)
[2020-12-07 07:42] LABS: BASOPHILS % (AUTO) 0.4 %; EOSINOPHILS # (AUTO) 0.1 10^3/uL (0.0-0.7); EOSINOPHILS % (AUTO) 1.1 %; HCT - HEMATOCRIT 28.6 % (37.0-47.0); HGB - HEMOGLOBIN 9.8 g/dL (12.0-16.0); LYMPHOCYTES # (AUTO) 1.4 10^3/uL (1.5-3.5); LYMPHOCYTES % (AUTO) 13.7 %; MEAN CORPUSCULAR HEMOGLOBIN 28.7 pg (27.0-31.0); MEAN CORPUSCULAR HGB CONC 34.3 g/dL (32.0-36.0); MEAN CORPUSCULAR VOLUME 83.6 fL (81.0-99.0); MEAN PLATELET VOLUME 10.7 fL (7.9-10.8); MONOCYTES # (AUTO) 0.7 10^3/uL (0.0-1.0); MONOCYTES % (AUTO) 6.7 %; NEUTROPHILS # (AUTO) 7.8 10^3/uL (1.5-6.6); NEUTROPHILS % (AUTO) 77.5 %; PLT - PLATELET COUNT 236 10^3/uL (130-450); RED BLOOD COUNT 3.42 10^6/uL (4.20-5.40); WHITE BLOOD COUNT 10.1 x10^3/uL (4.8-10.8)
[2020-12-07] MEDS ORDERED: DEXTROSE GEL 37.5 GM TUBE PO ONE (07:44)
[2020-12-07 07:48] LABS: AMYLASE 51 U/L (28-100); LIPASE 38 U/L (22-51)
[2020-12-07 08:21] LABS: CHOL/HDL RATIO 27.3 (<4.4); CHOLESTEROL 710 mg/dL; HDL CHOLESTEROL 26 mg/dL
[2020-12-07 08:23] LABS: TRIGLYCERIDES > 2000 mg/dL
--- NOTE | 2020-12-07 08:32 | CT Report ---
PROCEDURE: Abdomen/Pelvis W INDICATIONS: epigastric pain CONTRAST: IV CONTRAST: Optiray 320 ml: 45 PO CONTRAST: *NO PO CONTRAST TECHNIQUE: After the administration of IV contrast, 5 mm thick sections acquired from the diaphragms to the symp hysis. 5 mm thick coronal and sagittal reformats were acquired. For radiation dose reduction, the f ollowing was used: automated exposure control, adjustment of mA and/or kV according to patient size. COMPARISON: None. FINDINGS: ABDOMEN: Lung bases: Normal Hepatic steatosis is noted. Spleen: Normal Gallbladder: Contains a sub-3 mm calculus, however no other specific CT evidence of acute cholecystit is. Bile ducts: Normal Pancreas: There is peripancreatic stranding along the anterior margin, an inflammatory appearance. Th ere is also additional inflammatory fat stranding adjacent to the stomach and duodenum and anterior o mentum. Colonic diverticulosis noted. Adrenals: Normal Kidneys: Normal Bowel loops: Normal No free fluid or air. Abdominal nodes: Normal Aorta: Normal IVC: Normal No ventral hernias PELVIS: Bladder: Normal Pelvic nodes: Normal Groin: Normal Bones: No vertebral body compression fracture. No suspicious bone lesion. IMPRESSION: Marked inflammatory stranding involving the fat adjacent to the stomach, duodenum and pancreas as det ramon above. No discrete abscess. The appearance probably relates to acute pancreatitis, with possibl e reactive or concomitant infectious/inflammatory gastroenteritis . Please correlate clinically and t o pancreatic enzymes. Hepatic steatosis Findings are concordant with the preliminary study interpretation provided at the time of the study. Additional chronic and incidental findings as above. Reviewed by: Oliver Bethea MD on 12/07/2020 8:31 AM PDT Approved by: Oliver Bethea MD on 12/07/2020 8:31 AM PDT Station ID: [id number]
[2020-12-07] MEDS: KETOROLAC 30 MG/ML VIAL IVP PRN ×3 (08:39→23:14)
[2020-12-07] MEDS: SODIUM CHLORIDE FLUSH 0.9% 10 ML SYRINGE IVP PRN ×2 (08:39→15:17)
[2020-12-07 08:57] LABS: LDL CHOLESTEROL,DIRECT 53 mg/dL
[2020-12-07] MEDS ORDERED: DEXTROSE 10% 1,000 ML IV SCH (09:00)
[2020-12-07] MEDS ORDERED: [UNRECOGNIZED DRUG - OTHER] PO SCH (09:00)
[2020-12-07 09:03] LABS: ALBUMIN 2.6 g/dL (3.2-5.5); ALKALINE PHOSPHATASE 48 IU/L (42-121); ALT ALANINE AMINOTRANSFERASE 46 IU/L (10-60); AST ASPARTATE AMINOTRANSFERASE 43 IU/L (10-42); BILIRUBIN,TOTAL 0.6 mg/dL (0.2-1.0); BUN - BLOOD UREA NITROGEN 7 mg/dL (6-20); CALCIUM 7.1 mg/dL (8.5-10.3); CARBON DIOXIDE - CO2 19 mmol/L (21-32); CHLORIDE 110 mmol/L (101-111); CREATININE 0.5 mg/dL (0.4-1.0); GFR - MDRD 137 (>89); GLUCOSE 74 mg/dL (70-100); MAGNESIUM 1.6 mg/dL (1.7-2.8); PHOSPHORUS 3.1 mg/dL (2.5-4.6); POTASSIUM 2.9 mmol/L (3.5-5.0); SODIUM 142 mmol/L (135-145); TOTAL PROTEIN 5.1 g/dL (6.7-8.2)
[2020-12-07 09:22] LABS: BILIRUBIN,DIRECT < 0.1 mg/dL (0.1-0.5)
[2020-12-07] MEDS ORDERED: INSULIN REGULAR HUMAN 100 UNIT in SODIUM CHLORIDE 0.9% 100ML 99 ML IV SCH ×3 (09:25→16:14)
[2020-12-07] MEDS ORDERED: POTASSIUM CHLORIDE 20 MEQ TABLET PO SCH ×3 (09:26→15:00)
[2020-12-07] MEDS: DEXTROSE 10% 1,000 ML IV SCH ×2 (09:34→17:15)
[2020-12-07] MEDS: FENOFIBRATE 48 MG TABLET PO SCH (10:32)
[2020-12-07] MEDS: ENOXAPARIN 40 MG/0.4 ML SYRINGE SUBQ SCH (10:33)
--- NOTE | 2020-12-07 14:13 | PHARMACY PROGRESS NOTE ---
- Best Possible Medication History Admit Date and Time: 12/07/20 0052 Processed by: Pharmacy Medication History completed: Yes Patient Interview: Completed Secondary Source(s): Physician records, Pharmacy records, Insurance records (PATIENT INTERVIEWED BY PHARMACY. PATIENT ABLE TO CONFIRM HOME MEDICATIONS ) As the person ultimately responsible for medication therapy, providers are able to order a medication from an existing home medication list in [facility] via the "Reconcile Routine" prior to Confirmation of that medication by patient support associate. Such practice is discouraged except when the physician, in their clinical judgment, deems that a medical need exists for a medication without regard to previous use.
[2020-12-07] MEDS: ETHINYL ESTRADIOL PO SCH (16:33)
[2020-12-07] MEDS: DROSPIRENONE PO SCH (16:33)
[2020-12-07 20:39] LABS: CHOL/HDL RATIO 21.3 (<4.4); CHOLESTEROL 491 mg/dL; HDL CHOLESTEROL 23 mg/dL; TRIGLYCERIDES 1258 mg/dL
[2020-12-07 20:59] LABS: LDL CHOLESTEROL,DIRECT 88 mg/dL; LDLD/HDL RATIO 3.8 (<4.4)
[2020-12-07 22:23] LABS: BASOPHILS % (AUTO) 0.2 %; EOSINOPHILS # (AUTO) 0.2 10^3/uL (0.0-0.7); EOSINOPHILS % (AUTO) 1.5 %; HCT - HEMATOCRIT 26.6 % (37.0-47.0); HGB - HEMOGLOBIN 8.5 g/dL (12.0-16.0); LYMPHOCYTES % (AUTO) 9.8 %; MEAN CORPUSCULAR HEMOGLOBIN 27.8 pg (27.0-31.0); MEAN CORPUSCULAR VOLUME 86.9 fL (81.0-99.0); MEAN PLATELET VOLUME 10.5 fL (7.9-10.8); MONOCYTES # (AUTO) 0.8 10^3/uL (0.0-1.0); MONOCYTES % (AUTO) 7.5 %; NEUTROPHILS # (AUTO) 8.4 10^3/uL (1.5-6.6); NEUTROPHILS % (AUTO) 80.5 %; PLT - PLATELET COUNT 212 10^3/uL (130-450); RED BLOOD COUNT 3.06 10^6/uL (4.20-5.40); WHITE BLOOD COUNT 10.5 x10^3/uL (4.8-10.8)
[2020-12-07] MEDS ORDERED: D5NS W/20 MEQ KCL 1,000 ML IV SCH (23:00)
[2020-12-07 23:13] LABS: ALBUMIN 2.7 g/dL (3.2-5.5); BUN - BLOOD UREA NITROGEN < 5 mg/dL (6-20); CALCIUM 7.7 mg/dL (8.5-10.3); CARBON DIOXIDE - CO2 20 mmol/L (21-32); CHLORIDE 104 mmol/L (101-111); CREATININE 0.6 mg/dL (0.4-1.0); GFR - MDRD 111 (>89); GLUCOSE 150 mg/dL (70-100); POTASSIUM 2.8 mmol/L (3.5-5.0); SODIUM 134 mmol/L (135-145)
[2020-12-07] MEDS ORDERED: POTASSIUM CHLORIDE 20 MEQ TABLET PO ONE (23:19)
[2020-12-08] MEDS: MORPHINE 2 MG/ML CARPUJECT IVP PRN ×6 (00:10→23:34)
[2020-12-08] MEDS: SODIUM CHLORIDE FLUSH 0.9% 10 ML SYRINGE IVP SCH ×3 (00:33→18:56)
[2020-12-08] MEDS: POTASSIUM CHLOR 10 MEQ/100 ML 10 MEQ/100 ML BAG IV SCH ×4 (00:33→04:02)
[2020-12-08] MEDS: LACTATED RINGERS 1,000 ML IV SCH ×2 (00:33→05:35)
[2020-12-08] MEDS: ACETAMINOPHEN 325 MG TABLET PO PRN ×2 (03:15→12:50)
[2020-12-08 05:11] LABS: BASOPHILS # (AUTO) 0.1 10^3/uL (0.0-0.1); BASOPHILS % (AUTO) 0.4 %; EOSINOPHILS # (AUTO) 0.2 10^3/uL (0.0-0.7); HCT - HEMATOCRIT 28.2 % (37.0-47.0); HGB - HEMOGLOBIN 9.2 g/dL (12.0-16.0); LYMPHOCYTES # (AUTO) 1.1 10^3/uL (1.5-3.5); LYMPHOCYTES % (AUTO) 9.2 %; MEAN CORPUSCULAR HEMOGLOBIN 27.6 pg (27.0-31.0); MEAN CORPUSCULAR HGB CONC 32.6 g/dL (32.0-36.0); MEAN CORPUSCULAR VOLUME 84.7 fL (81.0-99.0); MEAN PLATELET VOLUME 10.3 fL (7.9-10.8); MONOCYTES # (AUTO) 0.8 10^3/uL (0.0-1.0); MONOCYTES % (AUTO) 6.9 %; NEUTROPHILS # (AUTO) 9.5 10^3/uL (1.5-6.6); PLT - PLATELET COUNT 232 10^3/uL (130-450); RED BLOOD COUNT 3.33 10^6/uL (4.20-5.40); RED CELL DISTRIBUTION WIDTH 13.4 % (12.0-15.0); WHITE BLOOD COUNT 11.7 x10^3/uL (4.8-10.8)
[2020-12-08 05:38] LABS: BUN - BLOOD UREA NITROGEN < 5 mg/dL (6-20); CALCIUM 7.5 mg/dL (8.5-10.3); CARBON DIOXIDE - CO2 20 mmol/L (21-32); CHLORIDE 103 mmol/L (101-111); CREATININE 0.6 mg/dL (0.4-1.0); GFR - MDRD 111 (>89); GLUCOSE 168 mg/dL (70-100); MAGNESIUM 1.5 mg/dL (1.7-2.8); PHOSPHORUS 2.3 mg/dL (2.5-4.6); POTASSIUM 3.9 mmol/L (3.5-5.0); SODIUM 133 mmol/L (135-145)
[2020-12-08 05:45] LABS: AMYLASE 25 U/L (28-100); CHOL/HDL RATIO 21.2 (<4.4); CHOLESTEROL 573 mg/dL; HDL CHOLESTEROL 27 mg/dL; LIPASE 25 U/L (22-51); TRIGLYCERIDES 1204 mg/dL
[2020-12-08 06:05] LABS: LDL CHOLESTEROL,DIRECT 102 mg/dL; LDLD/HDL RATIO 3.8 (<4.4)
--- NOTE | 2020-12-08 06:51 | PROVIDER PROGRESS NOTE ---
Subjective - Prog Note Date Prog Note Date: 12/08/20 - Subjective Subjective: She states her abdominal pain is about a 6 out of 10. She feels like her abdomen is more distended. She is passing gas but not having a bowel movement. She also feels ear pain is predominantly in theepigastric and right upper quadrant. No nausea or vomiting. Denies any dyspnea, chest pain, cough. She still has difficulty taking deep breaths due to her abdominal pain. Current Medications - Current Medications Current Medications: Active Medications Acetaminophen (Acetaminophen 325 Mg Tablet) 650 mg PO Q4HR PRN PRN Reason: Pain 1 to 4 Last Admin: 12/08/20 03:15 Dose: 650 mg Documented by: Enoxaparin Sodium (Enoxaparin 40 Mg/0.4 Ml Syringe) 40 mg SUBQ DAILY [facility] Last Admin: 12/07/20 10:33 Dose: 40 mg Documented by: Fenofibrate (Fenofibrate 48 Mg Tablet) 96 mg PO DAILY [facility] Last Admin: 12/07/20 10:32 Dose: 96 mg Documented by: Potassium Chloride 40 meq/ (Dextrose/Sodium Chloride) 1,000 mls @ 125 mls/hr IV .Q8H [facility] Insulin Human Regular 100 unit (/ Sodium Chloride) 100 mls @ 8 mls/hr IV .[id number] [facility]; Protocol Ketorolac Tromethamine (Ketorolac 30 Mg/Ml Vial) 30 mg IVP Q6HR PRN PRN Reason: PAIN Stop: 12/12/20 00:53 Last Admin: 12/07/20 23:14 Dose: 30 mg Documented by: Loratadine (Loratadine 10 Mg Tablet) 10 mg PO HS [facility] Last Admin: 12/07/20 20:18 Dose: 10 mg Documented by: Morphine Sulfate (Morphine 2 Mg/Ml Carpuject) 2 mg IVP Q2HR PRN PRN Reason: Abdominal Pain Last Admin: 12/08/20 05:02 Dose: 2 mg Documented by: Pt Own Med* Dropirenone& Ethylestradiol 1 Each Tablet) 1 tab PO DAILY [facility] Last Admin: 12/07/20 16:33 Dose: 1 tab Documented by: Ondansetron HCl (Ondansetron Odt 4 Mg Tablet) 4 mg TL Q6HR PRN PRN Reason: Nausea / Vomiting Ondansetron HCl (Ondansetron 4 Mg/2 Ml Vial) 4 mg IVP Q6HR PRN PRN Reason: Nausea / Vomiting Sodium Chloride (Sodium Chloride Flush 0.9% 10 Ml Syringe) 10 ml IVP 0100,0900,1700 [facility] Last Admin: 12/08/20 00:33 Dose: 10 ml Documented by: Sodium Chloride (Sodium Chloride Flush 0.9% 10 Ml Syringe) 10 ml IVP PRN PRN PRN Reason: NEEDED PER PROVIDER ORDERS Last Admin: 12/07/20 15:17 Dose: 10 ml Documented by: Venlafaxine HCl (Venlafaxine Er 37.5 Mg Capsule) 37.5 mg PO [facility] Last Admin: 12/07/20 20:18 Dose: 37.5 mg Documented by: Ergocalciferol [Vitamin D2] 50,000 unit PO .Thursday02/19/18 Ezetimibe [Zetia] 10 mg PO DAILY 12/05/20 Sitagliptin Phos/Metformin HCl [Janumet Xr 50-1,000 mg Tablet] 1 tab PO DAILY 12/05/20 Venlafaxine ER [Effexor ER] 37.5 mg PO DAILY 12/05/20 Atorvastatin [Lipitor] 20 mg PO QPM 12/07/20 Ethinyl Estradiol/Drospirenone [Ocella 3 mg-0.03 mg Tablet] 1 tablet PO DAILY 12/07/20 Loratadine [Allergy Relief] 10 mg PO DAILY 12/07/20 Verapamil HCl [Calan Sr] 120 mg PO DAILY 12/07/20 Objective - Vital Signs/Intake & Output Reviewed Vital Signs: Yes Vital Signs: Vital Signs Pulse Resp BP Pulse Ox 12/08/20 05:00 103 H 24 116/79 92 12/08/20 03:00 105 H 18 111/78 94 Intake & Output: Intake & Output 12/05/20 12/06/20 12/07/20 12/08/20 23:59 23:59 23:59 23:59 Intake Total 5963.417 3460 Output Total 1685 Balance 4278.417 3460 - Objective General Appearance: positive: No acute distress, Alert Eyes Bilateral: positive: Normal inspection ENT: positive: ENT inspection nml Neck: positive: Nml inspection Respiratory: positive: No respiratory distress, Other (Diminished in bases.). negative: Wheezes, Rales Cardiovascular: positive: Tachycardia. negative: Irregularly irregular, Systolic murmur Abdomen: positive: Tenderness (Predominantly epigastric, right upper quadrant and left lower quadrant.), Hepatomegaly. negative: No distention, Guarding, Rebound Skin: positive: Warm, Dry Extremities: positive: Full ROM, No pedal edema Neurologic/Psychiatric: positive: Oriented x3, Motor nml - Lab Results Fish Bones: 12/08/20 16:47 12/08/20 16:47 Other Labs: Lab Results x24hrs 12/08/20 12/08/20 12/08/20 Range/Units 04:55 04:55 04:55 WBC (4.8-10.8) x10^3/uL RBC (4.20-5.40) 10^6/uL Hgb (12.0-16.0) g/dL Hct (37.0-47.0) % MCV (81.0-99.0) fL MCH (27.0-31.0) pg MCHC (32.0-36.0) g/dL RDW (12.0-15.0) % Plt Count (130-450) 10^3/uL MPV (7.9-10.8) fL Neut # (Auto) (1.5-6.6) 10^3/uL Lymph # (Auto) (1.5-3.5) 10^3/uL Bracken # (Auto) (0.0-1.0) 10^3/uL Eos # (Auto) (0.0-0.7) 10^3/uL Baso # (Auto) (0.0-0.1) 10^3/uL Absolute Nucleated RBC x10^3/uL Nucleated RBC % /100WBC Sodium 133 L (135-145) mmol/L Potassium 3.9 (3.5-5.0) mmol/L Chloride 103 (101-111) mmol/L Carbon Dioxide 20 L (21-32) mmol/L Anion Gap 10.0 (6-13) BUN < 5 L (6-20) mg/dL Creatinine 0.6 (0.4-1.0) mg/dL Estimated GFR (MDRD) 111 (>89) Glucose 168 H (70-100) mg/dL POC Whole Bld Glucose (70 - 100) mg/dL Lactic Acid 2.0 (0.5-2.2) mmol/L Calcium 7.5 L (8.5-10.3) mg/dL Phosphorus 2.3 L (2.5-4.6) mg/dL Magnesium 1.5 L (1.7-2.8) mg/dL Total Bilirubin (0.2-1.0) mg/dL Direct Bilirubin (0.1-0.5) mg/dL AST (10-42) IU/L ALT (10-60) IU/L Alkaline Phosphatase (42-121) IU/L Total Protein (6.7-8.2) g/dL Albumin (3.2-5.5) g/dL Globulin (2.1-4.2) g/dL Triglycerides 1204 H ( - 149) mg/dL Cholesterol 573 H ( - 199) mg/dL LDL Cholesterol Direct 102 ( - 129) mg/dL LDL Cholesterol, Calc Not Reportable VLDL Cholesterol Not Reportable HDL Cholesterol 27 L (60 - ) mg/dL LDL/HDL Ratio Not Reportable dLDL/HDL Ratio 3.8 (<4.4) Cholesterol/HDL Ratio 21.2 (<4.4) Amylase 25 L (28-100) U/L Lipase 25 (22-51) U/L Nasal Screen MRSA (PCR) (NEGATIVE) 12/08/20 12/08/20 12/07/20 Range/Units 04:55 00:57 23:58 WBC 11.7 H (4.8-10.8) x10^3/uL RBC 3.33 L (4.20-5.40) 10^6/uL Hgb 9.2 L (12.0-16.0) g/dL Hct 28.2 L (37.0-47.0) % MCV 84.7 (81.0-99.0) fL MCH 27.6 (27.0-31.0) pg MCHC 32.6 (32.0-36.0) g/dL RDW 13.4 (12.0-15.0) % Plt Count 232 (130-450) 10^3/uL MPV 10.3 (7.9-10.8) fL Neut # (Auto) 9.5 H (1.5-6.6) 10^3/uL Lymph # (Auto) 1.1 L (1.5-3.5) 10^3/uL Bracken # (Auto) 0.8 (0.0-1.0) 10^3/uL Eos # (Auto) 0.2 (0.0-0.7) 10^3/uL Baso # (Auto) 0.1 (0.0-0.1) 10^3/uL Absolute Nucleated RBC 0.00 x10^3/uL Nucleated RBC % 0.0 /100WBC Sodium (135-145) mmol/L Potassium (3.5-5.0) mmol/L Chloride (101-111) mmol/L Carbon Dioxide (21-32) mmol/L Anion Gap (6-13) BUN (6-20) mg/dL Creatinine (0.4-1.0) mg/dL Estimated GFR (MDRD) (>89) Glucose (70-100) mg/dL POC Whole Bld Glucose 82 84 (70 - 100) mg/dL Lactic Acid (0.5-2.2) mmol/L Calcium (8.5-10.3) mg/dL Phosphorus (2.5-4.6) mg/dL Magnesium (1.7-2.8) mg/dL Total Bilirubin (0.2-1.0) mg/dL Direct Bilirubin (0.1-0.5) mg/dL AST (10-42) IU/L ALT (10-60) IU/L Alkaline Phosphatase (42-121) IU/L Total Protein (6.7-8.2) g/dL Albumin (3.2-5.5) g/dL Globulin (2.1-4.2) g/dL Triglycerides ( - 149) mg/dL Cholesterol ( - 199) mg/dL LDL Cholesterol Direct ( - 129) mg/dL LDL Cholesterol, Calc VLDL Cholesterol HDL Cholesterol (60 - ) mg/dL LDL/HDL Ratio dLDL/HDL Ratio (<4.4) Cholesterol/HDL Ratio (<4.4) Amylase (28-100) U/L Lipase (22-51) U/L Nasal Screen MRSA (PCR) (NEGATIVE) 12/07/20 12/07/20 12/07/20 Range/Units 22:58 22:15 22:15 WBC 10.5 (4.8-10.8) x10^3/uL RBC 3.06 L (4.20-5.40) 10^6/uL Hgb 8.5 L (12.0-16.0) g/dL Hct 26.6 L (37.0-47.0) % MCV 86.9 (81.0-99.0) fL MCH 27.8 (27.0-31.0) pg MCHC 32.0 (32.0-36.0) g/dL RDW 14.0 (12.0-15.0) % Plt Count 212 (130-450) 10^3/uL MPV 10.5 (7.9-10.8) fL Neut # (Auto) 8.4 H (1.5-6.6) 10^3/uL Lymph # (Auto) 1.0 L (1.5-3.5) 10^3/uL Bracken # (Auto) 0.8 (0.0-1.0) 10^3/uL Eos # (Auto) 0.2 (0.0-0.7) 10^3/uL Baso # (Auto) 0.0 (0.0-0.1) 10^3/uL Absolute Nucleated RBC 0.00 x10^3/uL Nucleated RBC % 0.0 /100WBC Sodium 134 L (135-145) mmol/L Potassium 2.8 L (3.5-5.0) mmol/L Chloride 104 (101-111) mmol/L Carbon Dioxide 20 L (21-32) mmol/L Anion Gap 10.0 (6-13) BUN < 5 L (6-20) mg/dL Creatinine 0.6 (0.4-1.0) mg/dL Estimated GFR (MDRD) 111 (>89) Glucose 150 H (70-100) mg/dL POC Whole Bld Glucose (70 - 100) mg/dL Lactic Acid 2.5 H (0.5-2.2) mmol/L Calcium 7.7 L (8.5-10.3) mg/dL Phosphorus (2.5-4.6) mg/dL Magnesium (1.7-2.8) mg/dL Total Bilirubin (0.2-1.0) mg/dL Direct Bilirubin (0.1-0.5) mg/dL AST (10-42) IU/L ALT (10-60) IU/L Alkaline Phosphatase (42-121) IU/L Total Protein (6.7-8.2) g/dL Albumin 2.7 L (3.2-5.5) g/dL Globulin (2.1-4.2) g/dL Triglycerides ( - 149) mg/dL Cholesterol ( - 199) mg/dL LDL Cholesterol Direct ( - 129) mg/dL LDL Cholesterol, Calc VLDL Cholesterol HDL Cholesterol (60 - ) mg/dL LDL/HDL Ratio dLDL/HDL Ratio (<4.4) Cholesterol/HDL Ratio (<4.4) Amylase (28-100) U/L Lipase (22-51) U/L Nasal Screen MRSA (PCR) (NEGATIVE) 12/07/20 12/07/20 12/07/20 Range/Units 22:15 22:01 21:11 WBC (4.8-10.8) x10^3/uL RBC (4.20-5.40) 10^6/uL Hgb (12.0-16.0) g/dL Hct (37.0-47.0) % MCV (81.0-99.0) fL MCH (27.0-31.0) pg MCHC (32.0-36.0) g/dL RDW (12.0-15.0) % Plt Count (130-450) 10^3/uL MPV (7.9-10.8) fL Neut # (Auto) (1.5-6.6) 10^3/uL Lymph # (Auto) (1.5-3.5) 10^3/uL Bracken # (Auto) (0.0-1.0) 10^3/uL Eos # (Auto) (0.0-0.7) 10^3/uL Baso # (Auto) (0.0-0.1) 10^3/uL Absolute Nucleated RBC x10^3/uL Nucleated RBC % /100WBC Sodium Cancelled (135-145) mmol/L Potassium Cancelled (3.5-5.0) mmol/L Chloride Cancelled (101-111) mmol/L Carbon Dioxide Cancelled (21-32) mmol/L Anion Gap Cancelled (6-13) BUN Cancelled (6-20) mg/dL Creatinine Cancelled (0.4-1.0) mg/dL Estimated GFR (MDRD) Cancelled (>89) Glucose Cancelled (70-100) mg/dL POC Whole Bld Glucose 164 H 165 H (70 - 100) mg/dL Lactic Acid (0.5-2.2) mmol/L Calcium Cancelled (8.5-10.3) mg/dL Phosphorus (2.5-4.6) mg/dL Magnesium (1.7-2.8) mg/dL Total Bilirubin (0.2-1.0) mg/dL Direct Bilirubin (0.1-0.5) mg/dL AST (10-42) IU/L ALT (10-60) IU/L Alkaline Phosphatase (42-121) IU/L Total Protein (6.7-8.2) g/dL Albumin (3.2-5.5) g/dL Globulin (2.1-4.2) g/dL Triglycerides ( - 149) mg/dL Cholesterol ( - 199) mg/dL LDL Cholesterol Direct ( - 129) mg/dL LDL Cholesterol, Calc VLDL Cholesterol HDL Cholesterol (60 - ) mg/dL LDL/HDL Ratio dLDL/HDL Ratio (<4.4) Cholesterol/HDL Ratio (<4.4) Amylase (28-100) U/L Lipase (22-51) U/L Nasal Screen MRSA (PCR) (NEGATIVE) 12/07/20 12/07/20 12/07/20 Range/Units 20:08 19:55 18:54 WBC (4.8-10.8) x10^3/uL RBC (4.20-5.40) 10^6/uL Hgb (12.0-16.0) g/dL Hct (37.0-47.0) % MCV (81.0-99.0) fL MCH (27.0-31.0) pg MCHC (32.0-36.0) g/dL RDW (12.0-15.0) % Plt Count (130-450) 10^3/uL MPV (7.9-10.8) fL Neut # (Auto) (1.5-6.6) 10^3/uL Lymph # (Auto) (1.5-3.5) 10^3/uL Bracken # (Auto) (0.0-1.0) 10^3/uL Eos # (Auto) (0.0-0.7) 10^3/uL Baso # (Auto) (0.0-0.1) 10^3/uL Absolute Nucleated RBC x10^3/uL Nucleated RBC % /100WBC Sodium (135-145) mmol/L Potassium (3.5-5.0) mmol/L Chloride (101-111) mmol/L Carbon Dioxide (21-32) mmol/L Anion Gap (6-13) BUN (6-20) mg/dL Creatinine (0.4-1.0) mg/dL Estimated GFR (MDRD) (>89) Glucose (70-100) mg/dL POC Whole Bld Glucose 182 H 230 H (70 - 100) mg/dL Lactic Acid (0.5-2.2) mmol/L Calcium (8.5-10.3) mg/dL Phosphorus (2.5-4.6) mg/dL Magnesium (1.7-2.8) mg/dL Total Bilirubin (0.2-1.0) mg/dL Direct Bilirubin (0.1-0.5) mg/dL AST (10-42) IU/L ALT (10-60) IU/L Alkaline Phosphatase (42-121) IU/L Total Protein (6.7-8.2) g/dL Albumin (3.2-5.5) g/dL Globulin (2.1-4.2) g/dL Triglycerides 1258 H ( - 149) mg/dL Cholesterol 491 H ( - 199) mg/dL LDL Cholesterol Direct 88 ( - 129) mg/dL LDL Cholesterol, Calc Not Reportable VLDL Cholesterol Not Reportable HDL Cholesterol 23 L (60 - ) mg/dL LDL/HDL Ratio Not Reportable dLDL/HDL Ratio 3.8 (<4.4) Cholesterol/HDL Ratio 21.3 (<4.4) Amylase (28-100) U/L Lipase (22-51) U/L Nasal Screen MRSA (PCR) (NEGATIVE) 12/07/20 12/07/20 12/07/20 Range/Units 18:01 16:58 16:21 WBC (4.8-10.8) x10^3/uL RBC (4.20-5.40) 10^6/uL Hgb (12.0-16.0) g/dL Hct (37.0-47.0) % MCV (81.0-99.0) fL MCH (27.0-31.0) pg MCHC (32.0-36.0) g/dL RDW (12.0-15.0) % Plt Count (130-450) 10^3/uL MPV (7.9-10.8) fL Neut # (Auto) (1.5-6.6) 10^3/uL Lymph # (Auto) (1.5-3.5) 10^3/uL Bracken # (Auto) (0.0-1.0) 10^3/uL Eos # (Auto) (0.0-0.7) 10^3/uL Baso # (Auto) (0.0-0.1) 10^3/uL Absolute Nucleated RBC x10^3/uL Nucleated RBC % /100WBC Sodium (135-145) mmol/L Potassium (3.5-5.0) mmol/L Chloride (101-111) mmol/L Carbon Dioxide (21-32) mmol/L Anion Gap (6-13) BUN (6-20) mg/dL Creatinine (0.4-1.0) mg/dL Estimated GFR (MDRD) (>89) Glucose (70-100) mg/dL POC Whole Bld Glucose 249 H 194 H 195 H (70 - 100) mg/dL Lactic Acid (0.5-2.2) mmol/L Calcium (8.5-10.3) mg/dL Phosphorus (2.5-4.6) mg/dL Magnesium (1.7-2.8) mg/dL Total Bilirubin (0.2-1.0) mg/dL Direct Bilirubin (0.1-0.5) mg/dL AST (10-42) IU/L ALT (10-60) IU/L Alkaline Phosphatase (42-121) IU/L Total Protein (6.7-8.2) g/dL Albumin (3.2-5.5) g/dL Globulin (2.1-4.2) g/dL Triglycerides ( - 149) mg/dL Cholesterol ( - 199) mg/dL LDL Cholesterol Direct ( - 129) mg/dL LDL Cholesterol, Calc VLDL Cholesterol HDL Cholesterol (60 - ) mg/dL LDL/HDL Ratio dLDL/HDL Ratio (<4.4) Cholesterol/HDL Ratio (<4.4) Amylase (28-100) U/L Lipase (22-51) U/L Nasal Screen MRSA (PCR) (NEGATIVE) 12/07/20 12/07/20 12/07/20 Range/Units 15:10 13:58 13:13 WBC (4.8-10.8) x10^3/uL RBC (4.20-5.40) 10^6/uL Hgb (12.0-16.0) g/dL Hct (37.0-47.0) % MCV (81.0-99.0) fL MCH (27.0-31.0) pg MCHC (32.0-36.0) g/dL RDW (12.0-15.0) % Plt Count (130-450) 10^3/uL MPV (7.9-10.8) fL Neut # (Auto) (1.5-6.6) 10^3/uL Lymph # (Auto) (1.5-3.5) 10^3/uL Bracken # (Auto) (0.0-1.0) 10^3/uL Eos # (Auto) (0.0-0.7) 10^3/uL Baso # (Auto) (0.0-0.1) 10^3/uL Absolute Nucleated RBC x10^3/uL Nucleated RBC % /100WBC Sodium (135-145) mmol/L Potassium (3.5-5.0) mmol/L Chloride (101-111) mmol/L Carbon Dioxide (21-32) mmol/L Anion Gap (6-13) BUN (6-20) mg/dL Creatinine (0.4-1.0) mg/dL Estimated GFR (MDRD) (>89) Glucose (70-100) mg/dL POC Whole Bld Glucose 214 H 239 H 237 H (70 - 100) mg/dL Lactic Acid (0.5-2.2) mmol/L Calcium (8.5-10.3) mg/dL Phosphorus (2.5-4.6) mg/dL Magnesium (1.7-2.8) mg/dL Total Bilirubin (0.2-1.0) mg/dL Direct Bilirubin (0.1-0.5) mg/dL AST (10-42) IU/L ALT (10-60) IU/L Alkaline Phosphatase (42-121) IU/L Total Protein (6.7-8.2) g/dL Albumin (3.2-5.5) g/dL Globulin (2.1-4.2) g/dL Triglycerides ( - 149) mg/dL Cholesterol ( - 199) mg/dL LDL Cholesterol Direct ( - 129) mg/dL LDL Cholesterol, Calc VLDL Cholesterol HDL Cholesterol (60 - ) mg/dL LDL/HDL Ratio dLDL/HDL Ratio (<4.4) Cholesterol/HDL Ratio (<4.4) Amylase (28-100) U/L Lipase (22-51) U/L Nasal Screen MRSA (PCR) (NEGATIVE) 12/07/20 12/07/20 12/07/20 Range/Units 12:01 10:53 09:53 WBC (4.8-10.8) x10^3/uL RBC (4.20-5.40) 10^6/uL Hgb (12.0-16.0) g/dL Hct (37.0-47.0) % MCV (81.0-99.0) fL MCH (27.0-31.0) pg MCHC (32.0-36.0) g/dL RDW (12.0-15.0) % Plt Count (130-450) 10^3/uL MPV (7.9-10.8) fL Neut # (Auto) (1.5-6.6) 10^3/uL Lymph # (Auto) (1.5-3.5) 10^3/uL Bracken # (Auto) (0.0-1.0) 10^3/uL Eos # (Auto) (0.0-0.7) 10^3/uL Baso # (Auto) (0.0-0.1) 10^3/uL Absolute Nucleated RBC x10^3/uL Nucleated RBC % /100WBC Sodium (135-145) mmol/L Potassium (3.5-5.0) mmol/L Chloride (101-111) mmol/L Carbon Dioxide (21-32) mmol/L Anion Gap (6-13) BUN (6-20) mg/dL Creatinine (0.4-1.0) mg/dL Estimated GFR (MDRD) (>89) Glucose (70-100) mg/dL POC Whole Bld Glucose 205 H 260 H 204 H (70 - 100) mg/dL Lactic Acid (0.5-2.2) mmol/L Calcium (8.5-10.3) mg/dL Phosphorus (2.5-4.6) mg/dL Magnesium (1.7-2.8) mg/dL Total Bilirubin (0.2-1.0) mg/dL Direct Bilirubin (0.1-0.5) mg/dL AST (10-42) IU/L ALT (10-60) IU/L Alkaline Phosphatase (42-121) IU/L Total Protein (6.7-8.2) g/dL Albumin (3.2-5.5) g/dL Globulin (2.1-4.2) g/dL Triglycerides ( - 149) mg/dL Cholesterol ( - 199) mg/dL LDL Cholesterol Direct ( - 129) mg/dL LDL Cholesterol, Calc VLDL Cholesterol HDL Cholesterol (60 - ) mg/dL LDL/HDL Ratio dLDL/HDL Ratio (<4.4) Cholesterol/HDL Ratio (<4.4) Amylase (28-100) U/L Lipase (22-51) U/L Nasal Screen MRSA (PCR) (NEGATIVE) 12/07/20 12/07/20 12/07/20 Range/Units 09:08 08:30 08:04 WBC (4.8-10.8) x10^3/uL RBC (4.20-5.40) 10^6/uL Hgb (12.0-16.0) g/dL Hct (37.0-47.0) % MCV (81.0-99.0) fL MCH (27.0-31.0) pg MCHC (32.0-36.0) g/dL RDW (12.0-15.0) % Plt Count (130-450) 10^3/uL MPV (7.9-10.8) fL Neut # (Auto) (1.5-6.6) 10^3/uL Lymph # (Auto) (1.5-3.5) 10^3/uL Bracken # (Auto) (0.0-1.0) 10^3/uL Eos # (Auto) (0.0-0.7) 10^3/uL Baso # (Auto) (0.0-0.1) 10^3/uL Absolute Nucleated RBC x10^3/uL Nucleated RBC % /100WBC Sodium (135-145) mmol/L Potassium (3.5-5.0) mmol/L Chloride (101-111) mmol/L Carbon Dioxide (21-32) mmol/L Anion Gap (6-13) BUN (6-20) mg/dL Creatinine (0.4-1.0) mg/dL Estimated GFR (MDRD) (>89) Glucose (70-100) mg/dL POC Whole Bld Glucose 222 H 96 (70 - 100) mg/dL Lactic Acid 2.2 (0.5-2.2) mmol/L Calcium (8.5-10.3) mg/dL Phosphorus (2.5-4.6) mg/dL Magnesium (1.7-2.8) mg/dL Total Bilirubin (0.2-1.0) mg/dL Direct Bilirubin (0.1-0.5) mg/dL AST (10-42) IU/L ALT (10-60) IU/L Alkaline Phosphatase (42-121) IU/L Total Protein (6.7-8.2) g/dL Albumin (3.2-5.5) g/dL Globulin (2.1-4.2) g/dL Triglycerides ( - 149) mg/dL Cholesterol ( - 199) mg/dL LDL Cholesterol Direct ( - 129) mg/dL LDL Cholesterol, Calc VLDL Cholesterol HDL Cholesterol (60 - ) mg/dL LDL/HDL Ratio dLDL/HDL Ratio (<4.4) Cholesterol/HDL Ratio (<4.4) Amylase (28-100) U/L Lipase (22-51) U/L Nasal Screen MRSA (PCR) (NEGATIVE) 12/07/20 12/07/20 12/07/20 Range/Units 07:39 07:25 07:25 WBC (4.8-10.8) x10^3/uL RBC (4.20-5.40) 10^6/uL Hgb (12.0-16.0) g/dL Hct (37.0-47.0) % MCV (81.0-99.0) fL MCH (27.0-31.0) pg MCHC (32.0-36.0) g/dL RDW (12.0-15.0) % Plt Count (130-450) 10^3/uL MPV (7.9-10.8) fL Neut # (Auto) (1.5-6.6) 10^3/uL Lymph # (Auto) (1.5-3.5) 10^3/uL Bracken # (Auto) (0.0-1.0) 10^3/uL Eos # (Auto) (0.0-0.7) 10^3/uL Baso # (Auto) (0.0-0.1) 10^3/uL Absolute Nucleated RBC x10^3/uL Nucleated RBC % /100WBC Sodium (135-145) mmol/L Potassium (3.5-5.0) mmol/L Chloride (101-111) mmol/L Carbon Dioxide (21-32) mmol/L Anion Gap (6-13) BUN (6-20) mg/dL Creatinine (0.4-1.0) mg/dL Estimated GFR (MDRD) (>89) Glucose (70-100) mg/dL POC Whole Bld Glucose 64 L (70 - 100) mg/dL Lactic Acid (0.5-2.2) mmol/L Calcium (8.5-10.3) mg/dL Phosphorus (2.5-4.6) mg/dL Magnesium (1.7-2.8) mg/dL Total Bilirubin (0.2-1.0) mg/dL Direct Bilirubin (0.1-0.5) mg/dL AST (10-42) IU/L ALT (10-60) IU/L Alkaline Phosphatase (42-121) IU/L Total Protein (6.7-8.2) g/dL Albumin (3.2-5.5) g/dL Globulin (2.1-4.2) g/dL Triglycerides > 2000 H ( - 149) mg/dL Cholesterol 710 H ( - 199) mg/dL LDL Cholesterol Direct 53 ( - 129) mg/dL LDL Cholesterol, Calc Not Reportable VLDL Cholesterol Not Reportable HDL Cholesterol 26 L (60 - ) mg/dL LDL/HDL Ratio Not Reportable dLDL/HDL Ratio 2.0 (<4.4) Cholesterol/HDL Ratio 27.3 (<4.4) Amylase 51 (28-100) U/L Lipase 38 (22-51) U/L Nasal Screen MRSA (PCR) (NEGATIVE) 12/07/20 12/07/20 12/07/20 Range/Units 07:25 05:00 04:50 WBC 10.1 (4.8-10.8) x10^3/uL RBC 3.42 L (4.20-5.40) 10^6/uL Hgb 9.8 L (12.0-16.0) g/dL Hct 28.6 L (37.0-47.0) % MCV 83.6 (81.0-99.0) fL MCH 28.7 (27.0-31.0) pg MCHC 34.3 (32.0-36.0) g/dL RDW 13.0 (12.0-15.0) % Plt Count 236 (130-450) 10^3/uL MPV 10.7 (7.9-10.8) fL Neut # (Auto) 7.8 H (1.5-6.6) 10^3/uL Lymph # (Auto) 1.4 L (1.5-3.5) 10^3/uL Bracken # (Auto) 0.7 (0.0-1.0) 10^3/uL Eos # (Auto) 0.1 (0.0-0.7) 10^3/uL Baso # (Auto) 0.0 (0.0-0.1) 10^3/uL Absolute Nucleated RBC 0.00 x10^3/uL Nucleated RBC % 0.0 /100WBC Sodium 142 (135-145) mmol/L Potassium 2.9 L (3.5-5.0) mmol/L Chloride 110 (101-111) mmol/L Carbon Dioxide 19 L (21-32) mmol/L Anion Gap 12.0 (6-13) BUN 7 (6-20) mg/dL Creatinine 0.5 (0.4-1.0) mg/dL Estimated GFR (MDRD) 137 (>89) Glucose 74 (70-100) mg/dL POC Whole Bld Glucose (70 - 100) mg/dL Lactic Acid (0.5-2.2) mmol/L Calcium 7.1 L (8.5-10.3) mg/dL Phosphorus 3.1 (2.5-4.6) mg/dL Magnesium 1.6 L (1.7-2.8) mg/dL Total Bilirubin 0.6 (0.2-1.0) mg/dL Direct Bilirubin < 0.1 L (0.1-0.5) mg/dL AST 43 H (10-42) IU/L ALT 46 (10-60) IU/L Alkaline Phosphatase 48 (42-121) IU/L Total Protein 5.1 L (6.7-8.2) g/dL Albumin 2.6 L (3.2-5.5) g/dL Globulin 2.4 (2.1-4.2) g/dL Triglycerides ( - 149) mg/dL Cholesterol ( - 199) mg/dL LDL Cholesterol Direct ( - 129) mg/dL LDL Cholesterol, Calc VLDL Cholesterol HDL Cholesterol (60 - ) mg/dL LDL/HDL Ratio dLDL/HDL Ratio (<4.4) Cholesterol/HDL Ratio (<4.4) Amylase (28-100) U/L Lipase (22-51) U/L Nasal Screen MRSA (PCR) NEGATIVE (NEGATIVE) Assessment/Plan - Problem List (1) Pancreatitis Impression: She appears to be improving. She still has abdominal pain although this is decreased. Her amylase and lipase remain normal. CT on admission was concerning for pancreatitis. This is likely due to the hypertriglyceridemia which is improved but still elevated at over 1200. Other differentials include the use of Janumet and gallstone pancreatitis given she did have cholelithiasis on imaging. The insulin drip was discontinued overnight due to hypokalemia but we will resume this now that her hypokalemia has resolved. We will place her on an insulin drip at 8 units an hour. We will also place her on dextrose/half- normal saline with potassium to prevent hypoglycemia. Continue check liver panel every 12 hours. Continue with daily lipase and amylase. We have made her n.p.o. given her fevers yesterday but will consider placing on a clear liquid diet if she remains afebrile. Will obtain a repeat CT given her fever and abdominal distention. Qualifiers: Chronicity: acute Pancreatitis type: other Acute pancreatitis complication: no infection or necrosis Qualified Code(s): K85.80 - Other acute pancreatitis without necrosis or infection (2) Fever Impression: Suspect this may related to pancreatitis. She has been febrile over the past 24 hours with a T-max of 39.3. A chest x-ray was obtained which showed either atelectasis or possible right lower lobe infiltrate. Clinically this appears to be atelectasis as she has had shallow breathing due to the abdominal pain. She has no cough or dyspnea. Her urinalysis is unremarkable. CT on admission did not show any obvious source of infection. Fortunately, this morning she is afebrile. Her white count is slightly elevated but stable. Lactic acid is normal. At this time, we will continue to hold off on antibiotics given lack of obvious infection. Will obtain a CT of the abdomen/pelvis. Blood cultures have been negative to date and we will continue to follow these. (3) Hypertriglyceridemia Impression: This is improving after initiating an IV insulin. It is still elevated at greater than 1200. She will be resumed on IV insulin this morning as her hypokalemia has resolved. Continue [facility]. Lipid panel every 12 hours until triglycerides are less than 500 given the pancreatitis. (4) Anemia Impression: Her hemoglobin was as low as 8.5 yesterday evening. It was nearly 12 on admission. There has been no evidence of bleeding. Her blood pressure has remained normal although she has been persistently tachycardic. Hemoglobin this morning is improved to 9.2. Suspect the drop may be dilutional due to the amount of IV fluid she has received. We will check iron studies and ferritin. We will continue on Lovenox for DVT prophylaxis. We will recheck a CBC in the evening. (5) Cholelithiasis Impression: This was evident on imaging and there is no concern for cholecystitis at this time. Her LFTs were mildly elevated but these are improved. This may be a potential cause of her pancreatitis although she has other more likely contributing factors such as the hypertriglyceridemia. We will continue to monitor for the time being. We will likely hold off on consulting general surgery unless she has another episode of pancreatitis without a clear cause in the future. (6) Controlled type 2 diabetes mellitus Impression: Her blood glucose has been relatively controlled on the insulin drip and dextrose which she will continue now that her hypokalemia has resolved. You with every hour blood glucose checks while she is on insulin drip. Her Janumet will need to be discontinued on discharge given the pancreatitis. Will consider just Metformin alone. (7) Hypokalemia Impression: This is likely secondary to the use of IV insulin. This is resolved this morning. Insulin drip has been resumed and we will continue her on maintenance IV fluids with dextrose and potassium. (8) History of migraine Impression: Stable. We are continuing her home medications.
[2020-12-08] MEDS ORDERED: IOVERSOL 320 100 ML VIAL IVP ONE ×2 (07:21→07:58)
[2020-12-08 07:57] LABS: % IRON SATURATION 4 % (20-50); IRON 10 ug/dL (28-170); TOTAL IRON BINDING CAPACITY 280 ug/dL (250-450); TRANSFERRIN 200 mg/dL (192-382)
[2020-12-08] MEDS: KETOROLAC 30 MG/ML VIAL IVP PRN ×3 (08:02→20:44)
[2020-12-08] MEDS: POTASSIUM CHLORIDE INJ 40 MEQ in DEXTROSE 5%-0.45% NACL 980 ML IV SCH ×3 (08:15→23:36)
[2020-12-08] MEDS: INSULIN REGULAR HUMAN 100 UNIT in SODIUM CHLORIDE 0.9% 100ML 99 ML IV SCH ×2 (08:21→20:52)
[2020-12-08] MEDS ORDERED: MAGNESIUM SULFATE 2 GRAM 2 GM/50 ML BAG IV ONE (08:25)
--- NOTE | 2020-12-08 09:07 | XRAY Report ---
PROCEDURE: Chest 1 View X-Ray INDICATIONS: Fever. Dyspnea. TECHNIQUE: One view of the chest was acquired. COMPARISON: 12/05/2020 CT pulmonary angiogram. FINDINGS: Surgical changes and devices: None. Lungs and pleura: Mild elevation the right hemidiaphragm with bibasilar atelectasis. Mediastinum: Me diastinal contours appear normal. Heart size is normal. Bones and chest wall: No suspicious bony lesions. Overlying soft tissues appear unremarkable. IMPRESSION: No acute cardiopulmonary findings. Bibasilar atelectasis. No significant discrepancy in the preliminary report. Reviewed by: Holden Shirley on 12/08/2020 8:06 AM LASHELL Approved by: Holden Shirley on 12/08/2020 8:06 AM LASHELL Station ID: [id number]
[2020-12-08] MEDS: DROSPIRENONE PO SCH (10:14)
[2020-12-08] MEDS: ETHINYL ESTRADIOL PO SCH (10:14)
[2020-12-08] MEDS: ENOXAPARIN 40 MG/0.4 ML SYRINGE SUBQ SCH (10:15)
[2020-12-08] MEDS: FENOFIBRATE 48 MG TABLET PO SCH (10:15)
--- NOTE | 2020-12-08 10:17 | CT Report ---
PROCEDURE: Abdomen/Pelvis W INDICATIONS: Abodminal pain. Fever. Anemia. CONTRAST: IV CONTRAST: Optiray 320 ml: 100 PO CONTRAST: *NO PO CONTRAST TECHNIQUE: After the administration of 100 mL Optiray 320 contrast, 5 mm thick sections acquired from the diaphr agms to the symphysis. 5 mm thick coronal and sagittal reformats were acquired. For radiation dose reduction, the following was used: automated exposure control, adjustment of mA and/or kV according to patient size. COMPARISON: 12/06/2020 CT abdomen/pelvis. FINDINGS: Image quality: Excellent. ABDOMEN: Lung bases: Atelectasis in the lung bases. New small right pleural effusion. Heart size is normal. Solid organs: Normal appearance of the liver. Gallbladder is partially distended containing a small l ayering gallstone. Normal enhancement of the pancreas with extensive edema along its inferior aspect. Normal appearance of the spleen. Normal adrenal glands. Kidneys enhance normally without hydronephro sis. Peritoneum and bowel: No hiatal hernia or small bowel obstruction. There is mild thickening of the mu cosa of the colon in the hepatic flexure, likely reactive to surrounding inflammatory changes. There is fluid layering in the right paracolic gutter, below the stomach, and within the retroperitoneum. O verall severity of the fluid in the abdomen has mildly progressed since 12/06/2020 comparison Nodes and vessels: No retroperitoneal or mesenteric adenopathy by size criteria. Aorta and inferior vena cava are normal in size. Miscellaneous: No ventral hernias. PELVIS: Genitourinary: Bladder wall thickness is normal. Uterus is anteverted. Miscellaneous: No inguinal hernias or adenopathy. Bones: No suspicious bony lesions. No vertebral body compression fractures. IMPRESSION: 1. Interval progression of inflammatory changes about the pancreas, greater curvature the stomach, an d proximal duodenum. While most commonly this inflammation secondary to acute interstitial pancreatit is, other causes of regional inflammation such as peptic ulcer disease or gastroenteritis are also po ssible. 2. No evidence of bowel perforation or abdominal abscess formation. 3. New small right pleural effusion. 4. Bowel thickening of the colon at the hepatic flexure, likely reactive to adjacent inflammatory marquis nges further discussed above. Reviewed by: Holden Shirley on 12/08/2020 9:15 AM LASHELL Approved by: Holden Shirley on 12/08/2020 9:15 AM LASHELL Station ID: [id number]
[2020-12-08] MEDS: NEUTRA-PHOS 250 MG TABLET PO SCH ×2 (12:50→15:36)
[2020-12-08] MEDS ORDERED: DEXTROSE GEL 37.5 GM TUBE PO ONE (13:01)
[2020-12-08 16:55] LABS: BASOPHILS % (AUTO) 0.2 %; EOSINOPHILS # (AUTO) 0.3 10^3/uL (0.0-0.7); EOSINOPHILS % (AUTO) 2.3 %; HCT - HEMATOCRIT 33.7 % (37.0-47.0); HGB - HEMOGLOBIN 10.8 g/dL (12.0-16.0); LYMPHOCYTES # (AUTO) 1.2 10^3/uL (1.5-3.5); LYMPHOCYTES % (AUTO) 10.9 %; MEAN CORPUSCULAR HEMOGLOBIN 27.3 pg (27.0-31.0); MEAN CORPUSCULAR VOLUME 85.3 fL (81.0-99.0); MEAN PLATELET VOLUME 10.2 fL (7.9-10.8); MONOCYTES # (AUTO) 0.6 10^3/uL (0.0-1.0); MONOCYTES % (AUTO) 5.7 %; NEUTROPHILS # (AUTO) 8.7 10^3/uL (1.5-6.6); NEUTROPHILS % (AUTO) 80.6 %; PLT - PLATELET COUNT 274 10^3/uL (130-450); RED BLOOD COUNT 3.95 10^6/uL (4.20-5.40); RED CELL DISTRIBUTION WIDTH 13.5 % (12.0-15.0); WHITE BLOOD COUNT 10.8 x10^3/uL (4.8-10.8)
[2020-12-08 17:18] LABS: BUN - BLOOD UREA NITROGEN < 5 mg/dL (6-20); CALCIUM 8.4 mg/dL (8.5-10.3); CARBON DIOXIDE - CO2 22 mmol/L (21-32); CHLORIDE 104 mmol/L (101-111); CREATININE 0.6 mg/dL (0.4-1.0); GFR - MDRD 111 (>89); GLUCOSE 93 mg/dL (70-100); POTASSIUM 3.6 mmol/L (3.5-5.0); SODIUM 137 mmol/L (135-145)
[2020-12-08 17:31] LABS: CHOL/HDL RATIO 21.4 (<4.4); CHOLESTEROL 641 mg/dL; HDL CHOLESTEROL 30 mg/dL; TRIGLYCERIDES 1274 mg/dL
[2020-12-08 17:52] LABS: LDL CHOLESTEROL,DIRECT 118 mg/dL; LDLD/HDL RATIO 3.9 (<4.4)
[2020-12-08] MEDS: VENLAFAXINE ER 37.5 MG CAPSULE PO SCH (20:44)
[2020-12-08] MEDS: LORATADINE 10 MG TABLET PO SCH (20:44)
[2020-12-08] MEDS ORDERED: INSULIN REGULAR HUMAN 100 UNIT in SODIUM CHLORIDE 0.9% 100ML 99 ML IV SCH (23:30)
[2020-12-09] MEDS: SODIUM CHLORIDE FLUSH 0.9% 10 ML SYRINGE IVP SCH ×3 (00:47→16:11)
[2020-12-09] MEDS: KETOROLAC 30 MG/ML VIAL IVP PRN ×3 (00:47→16:10)
[2020-12-09] MEDS: INSULIN REGULAR HUMAN 100 UNIT in SODIUM CHLORIDE 0.9% 100ML 99 ML IV SCH ×2 (00:57→15:51)
[2020-12-09] MEDS: POTASSIUM CHLORIDE INJ 40 MEQ in DEXTROSE 5%-0.45% NACL 980 ML IV SCH ×4 (01:35→19:51)
[2020-12-09] MEDS: MORPHINE 2 MG/ML CARPUJECT IVP PRN ×2 (06:20→22:38)
--- NOTE | 2020-12-09 07:05 | PROVIDER PROGRESS NOTE ---
Subjective - Prog Note Date Prog Note Date: 12/09/20 - Subjective Subjective: Feels a little better today. Still has abdominal pain that is most prominent in the epigastric and right upper quadrant. She feels less fatigued. No nausea or vomiting. She does not feel her pain is worse with eating. Has been tolerating a clear liquid diet. Still feels her abdomen is a little distended. Also has pain in the upper abdomen with deep inspiration. Current Medications - Current Medications Current Medications: Active Medications Acetaminophen (Acetaminophen 325 Mg Tablet) 650 mg PO Q4HR PRN PRN Reason: Pain 1 to 4 Last Admin: 12/08/20 12:50 Dose: 650 mg Documented by: Enoxaparin Sodium (Enoxaparin 40 Mg/0.4 Ml Syringe) 40 mg SUBQ DAILY [facility] Last Admin: 12/08/20 10:15 Dose: 40 mg Documented by: Fenofibrate (Fenofibrate 48 Mg Tablet) 96 mg PO DAILY [facility] Last Admin: 12/08/20 10:15 Dose: 96 mg Documented by: Potassium Chloride 40 meq/ (Dextrose/Sodium Chloride) 1,000 mls @ 150 mls/hr IV .[id number] [facility] Last Admin: 12/09/20 06:18 Dose: 150 mls/hr Documented by: Insulin Human Regular 100 unit (/ Sodium Chloride) 100 mls @ 6 mls/hr IV .[id number] [facility]; Protocol Last Admin: 12/09/20 00:57 Dose: 6 unit/hr, 6 mls/hr Documented by: Ketorolac Tromethamine (Ketorolac 30 Mg/Ml Vial) 30 mg IVP Q6HR PRN PRN Reason: PAIN Stop: 12/12/20 00:53 Last Admin: 12/09/20 00:47 Dose: 30 mg Documented by: Loratadine (Loratadine 10 Mg Tablet) 10 mg PO HS [facility] Last Admin: 12/08/20 20:44 Dose: 10 mg Documented by: Morphine Sulfate (Morphine 2 Mg/Ml Carpuject) 2 mg IVP Q2HR PRN PRN Reason: Abdominal Pain Last Admin: 12/09/20 06:20 Dose: 2 mg Documented by: Pt Own Med* Dropirenone& Ethylestradiol 1 Each Tablet) 1 tab PO DAILY [facility] Last Admin: 12/08/20 10:14 Dose: 1 tab Documented by: Ondansetron HCl (Ondansetron Odt 4 Mg Tablet) 4 mg TL Q6HR PRN PRN Reason: Nausea / Vomiting Ondansetron HCl (Ondansetron 4 Mg/2 Ml Vial) 4 mg IVP Q6HR PRN PRN Reason: Nausea / Vomiting Sodium Chloride (Sodium Chloride Flush 0.9% 10 Ml Syringe) 10 ml IVP 0100,09 00,1700 [facility] Last Admin: 12/09/20 00:47 Dose: 10 ml Documented by: Sodium Chloride (Sodium Chloride Flush 0.9% 10 Ml Syringe) 10 ml IVP PRN PRN PRN Reason: NEEDED PER PROVIDER ORDERS Last Admin: 12/07/20 15:17 Dose: 10 ml Documented by: Venlafaxine HCl (Venlafaxine Er 37.5 Mg Capsule) 37.5 mg PO [facility] Last Admin: 12/08/20 20:44 Dose: 37.5 mg Documented by: Ergocalciferol [Vitamin D2] 50,000 unit PO .Thursday02/19/18 Ezetimibe [Zetia] 10 mg PO DAILY 12/05/20 Sitagliptin Phos/Metformin HCl [Janumet Xr 50-1,000 mg Tablet] 1 tab PO DAILY 12/05/20 Venlafaxine ER [Effexor ER] 37.5 mg PO DAILY 12/05/20 Atorvastatin [Lipitor] 20 mg PO QPM 12/07/20 Ethinyl Estradiol/Drospirenone [Ocella 3 mg-0.03 mg Tablet] 1 tablet PO DAILY 12/07/20 Loratadine [Allergy Relief] 10 mg PO DAILY 12/07/20 Verapamil HCl [Calan Sr] 120 mg PO DAILY 12/07/20 Objective - Vital Signs/Intake & Output Reviewed Vital Signs: Yes Vital Signs: Vital Signs Pulse Resp BP Pulse Ox 12/09/20 05:00 95 16 120/81 H 96 12/09/20 04:03 99 18 118/82 H 93 Intake & Output: Intake & Output 12/06/20 12/07/20 12/08/20 12/09/20 23:59 23:59 23:59 23:59 Intake Total 5963.417 6331.751 1707.5 Output Total 1685 4350 750 Balance 4278.417 1981.751 957.5 - Objective General Appearance: positive: No acute distress, Alert Eyes Bilateral: positive: Normal inspection, Conjunctivae nml ENT: positive: ENT inspection nml Neck: positive: Nml inspection Respiratory: positive: No respiratory distress. negative: Wheezes, Rales Cardiovascular: positive: Tachycardia. negative: Irregularly irregular, Systolic murmur Abdomen: positive: Nml bowel sounds, Tenderness (Epigastric and right upper quadrant.). negative: No distention (Mild distention.), Guarding, Rebound Skin: positive: Warm, Dry Extremities: positive: Full ROM, Nml appearance, No pedal edema Neurologic/Psychiatric: positive: Oriented x3, Motor nml. negative: Disoriented to person, Disoriented to place, Disoriented to time - Lab Results Fish Bones: 12/09/20 07:13 12/09/20 07:13 Other Labs: Lab Results x24hrs 12/09/20 12/09/20 12/09/20 Range/Units 06:29 05:00 03:00 WBC (4.8-10.8) x10^3/uL RBC (4.20-5.40) 10^6/uL Hgb (12.0-16.0) g/dL Hct (37.0-47.0) % MCV (81.0-99.0) fL MCH (27.0-31.0) pg MCHC (32.0-36.0) g/dL RDW (12.0-15.0) % Plt Count (130-450) 10^3/uL MPV (7.9-10.8) fL Neut # (Auto) (1.5-6.6) 10^3/uL Lymph # (Auto) (1.5-3.5) 10^3/uL [place] # (Auto) (0.0-1.0) 10^3/uL Eos # (Auto) (0.0-0.7) 10^3/uL Baso # (Auto) (0.0-0.1) 10^3/uL Absolute Nucleated RBC x10^3/uL Nucleated RBC % /100WBC Sodium (135-145) mmol/L Potassium (3.5-5.0) mmol/L Chloride (101-111) mmol/L Carbon Dioxide (21-32) mmol/L Anion Gap (6-13) BUN (6-20) mg/dL Creatinine (0.4-1.0) mg/dL Estimated GFR (MDRD) (>89) Glucose (70-100) mg/dL POC Whole Bld Glucose 76 86 119 H (70 - 100) mg/dL Calcium (8.5-10.3) mg/dL Iron (28-170) ug/dL TIBC (250-450) ug/dL % Saturation (20-50) % Transferrin (192-382) mg/dL Ferritin (11.0-306.8) ng/mL Triglycerides ( - 149) mg/dL Cholesterol ( - 199) mg/dL LDL Cholesterol Direct ( - 129) mg/dL LDL Cholesterol, Calc VLDL Cholesterol HDL Cholesterol (60 - ) mg/dL LDL/HDL Ratio dLDL/HDL Ratio (<4.4) Cholesterol/HDL Ratio (<4.4) 12/09/20 12/09/20 12/08/20 Range/Units 01:57 00:44 23:22 WBC (4.8-10.8) x10^3/uL RBC (4.20-5.40) 10^6/uL Hgb (12.0-16.0) g/dL Hct (37.0-47.0) % MCV (81.0-99.0) fL MCH (27.0-31.0) pg MCHC (32.0-36.0) g/dL RDW (12.0-15.0) % Plt Count (130-450) 10^3/uL MPV (7.9-10.8) fL Neut # (Auto) (1.5-6.6) 10^3/uL Lymph # (Auto) (1.5-3.5) 10^3/uL [place] # (Auto) (0.0-1.0) 10^3/uL Eos # (Auto) (0.0-0.7) 10^3/uL Baso # (Auto) (0.0-0.1) 10^3/uL Absolute Nucleated RBC x10^3/uL Nucleated RBC % /100WBC Sodium (135-145) mmol/L Potassium (3.5-5.0) mmol/L Chloride (101-111) mmol/L Carbon Dioxide (21-32) mmol/L Anion Gap (6-13) BUN (6-20) mg/dL Creatinine (0.4-1.0) mg/dL Estimated GFR (MDRD) (>89) Glucose (70-100) mg/dL POC Whole Bld Glucose 108 H 73 89 (70 - 100) mg/dL Calcium (8.5-10.3) mg/dL Iron (28-170) ug/dL TIBC (250-450) ug/dL % Saturation (20-50) % Transferrin (192-382) mg/dL Ferritin (11.0-306.8) ng/mL Triglycerides ( - 149) mg/dL Cholesterol ( - 199) mg/dL LDL Cholesterol Direct ( - 129) mg/dL LDL Cholesterol, Calc VLDL Cholesterol HDL Cholesterol (60 - ) mg/dL LDL/HDL Ratio dLDL/HDL Ratio (<4.4) Cholesterol/HDL Ratio (<4.4) 12/08/20 12/08/20 12/08/20 Range/Units 22:06 20:00 19:06 WBC (4.8-10.8) x10^3/uL RBC (4.20-5.40) 10^6/uL Hgb (12.0-16.0) g/dL Hct (37.0-47.0) % MCV (81.0-99.0) fL MCH (27.0-31.0) pg MCHC (32.0-36.0) g/dL RDW (12.0-15.0) % Plt Count (130-450) 10^3/uL MPV (7.9-10.8) fL Neut # (Auto) (1.5-6.6) 10^3/uL Lymph # (Auto) (1.5-3.5) 10^3/uL [place] # (Auto) (0.0-1.0) 10^3/uL Eos # (Auto) (0.0-0.7) 10^3/uL Baso # (Auto) (0.0-0.1) 10^3/uL Absolute Nucleated RBC x10^3/uL Nucleated RBC % /100WBC Sodium (135-145) mmol/L Potassium (3.5-5.0) mmol/L Chloride (101-111) mmol/L Carbon Dioxide (21-32) mmol/L Anion Gap (6-13) BUN (6-20) mg/dL Creatinine (0.4-1.0) mg/dL Estimated GFR (MDRD) (>89) Glucose (70-100) mg/dL POC Whole Bld Glucose 111 H 108 H 147 H (70 - 100) mg/dL Calcium (8.5-10.3) mg/dL Iron (28-170) ug/dL TIBC (250-450) ug/dL % Saturation (20-50) % Transferrin (192-382) mg/dL Ferritin (11.0-306.8) ng/mL Triglycerides ( - 149) mg/dL Cholesterol ( - 199) mg/dL LDL Cholesterol Direct ( - 129) mg/dL LDL Cholesterol, Calc VLDL Cholesterol HDL Cholesterol (60 - ) mg/dL LDL/HDL Ratio dLDL/HDL Ratio (<4.4) Cholesterol/HDL Ratio (<4.4) 12/08/20 12/08/20 12/08/20 Range/Units 18:00 17:02 16:47 WBC (4.8-10.8) x10^3/uL RBC (4.20-5.40) 10^6/uL Hgb (12.0-16.0) g/dL Hct (37.0-47.0) % MCV (81.0-99.0) fL MCH (27.0-31.0) pg MCHC (32.0-36.0) g/dL RDW (12.0-15.0) % Plt Count (130-450) 10^3/uL MPV (7.9-10.8) fL Neut # (Auto) (1.5-6.6) 10^3/uL Lymph # (Auto) (1.5-3.5) 10^3/uL [place] # (Auto) (0.0-1.0) 10^3/uL Eos # (Auto) (0.0-0.7) 10^3/uL Baso # (Auto) (0.0-0.1) 10^3/uL Absolute Nucleated RBC x10^3/uL Nucleated RBC % /100WBC Sodium (135-145) mmol/L Potassium (3.5-5.0) mmol/L Chloride (101-111) mmol/L Carbon Dioxide (21-32) mmol/L Anion Gap (6-13) BUN (6-20) mg/dL Creatinine (0.4-1.0) mg/dL Estimated GFR (MDRD) (>89) Glucose (70-100) mg/dL POC Whole Bld Glucose 138 H 92 (70 - 100) mg/dL Calcium (8.5-10.3) mg/dL Iron (28-170) ug/dL TIBC (250-450) ug/dL % Saturation (20-50) % Transferrin (192-382) mg/dL Ferritin (11.0-306.8) ng/mL Triglycerides 1274 H ( - 149) mg/dL Cholesterol 641 H ( - 199) mg/dL LDL Cholesterol Direct 118 ( - 129) mg/dL LDL Cholesterol, Calc Not Reportable VLDL Cholesterol Not Reportable HDL Cholesterol 30 L (60 - ) mg/dL LDL/HDL Ratio Not Reportable dLDL/HDL Ratio 3.9 (<4.4) Cholesterol/HDL Ratio 21.4 (<4.4) 12/08/20 12/08/20 12/08/20 Range/Units 16:47 16:47 16:00 WBC 10.8 (4.8-10.8) x10^3/uL RBC 3.95 L (4.20-5.40) 10^6/uL Hgb 10.8 L (12.0-16.0) g/dL Hct 33.7 L (37.0-47.0) % MCV 85.3 (81.0-99.0) fL MCH 27.3 (27.0-31.0) pg MCHC 32.0 (32.0-36.0) g/dL RDW 13.5 (12.0-15.0) % Plt Count 274 (130-450) 10^3/uL MPV 10.2 (7.9-10.8) fL Neut # (Auto) 8.7 H (1.5-6.6) 10^3/uL Lymph # (Auto) 1.2 L (1.5-3.5) 10^3/uL [place] # (Auto) 0.6 (0.0-1.0) 10^3/uL Eos # (Auto) 0.3 (0.0-0.7) 10^3/uL Baso # (Auto) 0.0 (0.0-0.1) 10^3/uL Absolute Nucleated RBC 0.00 x10^3/uL Nucleated RBC % 0.0 /100WBC Sodium 137 (135-145) mmol/L Potassium 3.6 (3.5-5.0) mmol/L Chloride 104 (101-111) mmol/L Carbon Dioxide 22 (21-32) mmol/L Anion Gap 11.0 (6-13) BUN < 5 L (6-20) mg/dL Creatinine 0.6 (0.4-1.0) mg/dL Estimated GFR (MDRD) 111 (>89) Glucose 93 (70-100) mg/dL POC Whole Bld Glucose 86 (70 - 100) mg/dL Calcium 8.4 L (8.5-10.3) mg/dL Iron (28-170) ug/dL TIBC (250-450) ug/dL % Saturation (20-50) % Transferrin (192-382) mg/dL Ferritin (11.0-306.8) ng/mL Triglycerides ( - 149) mg/dL Cholesterol ( - 199) mg/dL LDL Cholesterol Direct ( - 129) mg/dL LDL Cholesterol, Calc VLDL Cholesterol HDL Cholesterol (60 - ) mg/dL LDL/HDL Ratio dLDL/HDL Ratio (<4.4) Cholesterol/HDL Ratio (<4.4) 12/08/20 12/08/20 12/08/20 Range/Units 15:12 14:17 13:19 WBC (4.8-10.8) x10^3/uL RBC (4.20-5.40) 10^6/uL Hgb (12.0-16.0) g/dL Hct (37.0-47.0) % MCV (81.0-99.0) fL MCH (27.0-31.0) pg MCHC (32.0-36.0) g/dL RDW (12.0-15.0) % Plt Count (130-450) 10^3/uL MPV (7.9-10.8) fL Neut # (Auto) (1.5-6.6) 10^3/uL Lymph # (Auto) (1.5-3.5) 10^3/uL [place] # (Auto) (0.0-1.0) 10^3/uL Eos # (Auto) (0.0-0.7) 10^3/uL Baso # (Auto) (0.0-0.1) 10^3/uL Absolute Nucleated RBC x10^3/uL Nucleated RBC % /100WBC Sodium (135-145) mmol/L Potassium (3.5-5.0) mmol/L Chloride (101-111) mmol/L Carbon Dioxide (21-32) mmol/L Anion Gap (6-13) BUN (6-20) mg/dL Creatinine (0.4-1.0) mg/dL Estimated GFR (MDRD) (>89) Glucose (70-100) mg/dL POC Whole Bld Glucose 105 H 102 H 78 (70 - 100) mg/dL Calcium (8.5-10.3) mg/dL Iron (28-170) ug/dL TIBC (250-450) ug/dL % Saturation (20-50) % Transferrin (192-382) mg/dL Ferritin (11.0-306.8) ng/mL Triglycerides ( - 149) mg/dL Cholesterol ( - 199) mg/dL LDL Cholesterol Direct ( - 129) mg/dL LDL Cholesterol, Calc VLDL Cholesterol HDL Cholesterol (60 - ) mg/dL LDL/HDL Ratio dLDL/HDL Ratio (<4.4) Cholesterol/HDL Ratio (<4.4) 12/08/20 12/08/20 12/08/20 Range/Units 12:59 11:13 09:21 WBC (4.8-10.8) x10^3/uL RBC (4.20-5.40) 10^6/uL Hgb (12.0-16.0) g/dL Hct (37.0-47.0) % MCV (81.0-99.0) fL MCH (27.0-31.0) pg MCHC (32.0-36.0) g/dL RDW (12.0-15.0) % Plt Count (130-450) 10^3/uL MPV (7.9-10.8) fL Neut # (Auto) (1.5-6.6) 10^3/uL Lymph # (Auto) (1.5-3.5) 10^3/uL [place] # (Auto) (0.0-1.0) 10^3/uL Eos # (Auto) (0.0-0.7) 10^3/uL Baso # (Auto) (0.0-0.1) 10^3/uL Absolute Nucleated RBC x10^3/uL Nucleated RBC % /100WBC Sodium (135-145) mmol/L Potassium (3.5-5.0) mmol/L Chloride (101-111) mmol/L Carbon Dioxide (21-32) mmol/L Anion Gap (6-13) BUN (6-20) mg/dL Creatinine (0.4-1.0) mg/dL Estimated GFR (MDRD) (>89) Glucose (70-100) mg/dL POC Whole Bld Glucose 66 L 93 113 H (70 - 100) mg/dL Calcium (8.5-10.3) mg/dL Iron (28-170) ug/dL TIBC (250-450) ug/dL % Saturation (20-50) % Transferrin (192-382) mg/dL Ferritin (11.0-306.8) ng/mL Triglycerides ( - 149) mg/dL Cholesterol ( - 199) mg/dL LDL Cholesterol Direct ( - 129) mg/dL LDL Cholesterol, Calc VLDL Cholesterol HDL Cholesterol (60 - ) mg/dL LDL/HDL Ratio dLDL/HDL Ratio (<4.4) Cholesterol/HDL Ratio (<4.4) 12/08/20 12/08/20 Range/Units 04:55 04:55 WBC (4.8-10.8) x10^3/uL RBC (4.20-5.40) 10^6/uL Hgb (12.0-16.0) g/dL Hct (37.0-47.0) % MCV (81.0-99.0) fL MCH (27.0-31.0) pg MCHC (32.0-36.0) g/dL RDW (12.0-15.0) % Plt Count (130-450) 10^3/uL MPV (7.9-10.8) fL Neut # (Auto) (1.5-6.6) 10^3/uL Lymph # (Auto) (1.5-3.5) 10^3/uL [place] # (Auto) (0.0-1.0) 10^3/uL Eos # (Auto) (0.0-0.7) 10^3/uL Baso # (Auto) (0.0-0.1) 10^3/uL Absolute Nucleated RBC x10^3/uL Nucleated RBC % /100WBC Sodium (135-145) mmol/L Potassium (3.5-5.0) mmol/L Chloride (101-111) mmol/L Carbon Dioxide (21-32) mmol/L Anion Gap (6-13) BUN (6-20) mg/dL Creatinine (0.4-1.0) mg/dL Estimated GFR (MDRD) (>89) Glucose (70-100) mg/dL POC Whole Bld Glucose (70 - 100) mg/dL Calcium (8.5-10.3) mg/dL Iron 10 L (28-170) ug/dL TIBC 280 (250-450) ug/dL % Saturation 4 L (20-50) % Transferrin 200 (192-382) mg/dL Ferritin 345.9 H (11.0-306.8) ng/mL Triglycerides ( - 149) mg/dL Cholesterol ( - 199) mg/dL LDL Cholesterol Direct ( - 129) mg/dL LDL Cholesterol, Calc VLDL Cholesterol HDL Cholesterol (60 - ) mg/dL LDL/HDL Ratio dLDL/HDL Ratio (<4.4) Cholesterol/HDL Ratio (<4.4) Assessment/Plan - Problem List (1) Pancreatitis Impression: She appears to be slowly improving. This is believed to be secondary to h ypertriglyceridemia or the use of Janumet. Imaging did reveal cholelithiasis which may have also been a contributing factor. She has been able to tolerate a clear liquid diet and has been fever free over the past 24 hours. Amylase and lipase remain normal. Repeat CT yesterday showed no obvious source of infection but did show mild increase in the inflammatory changes. She remains on insulin drip with D5 given the hypertriglyceridemia. Morphine as needed for pain control. We will continue a clear liquid diet and look to advance over the next 24 hours. Qualifiers: Chronicity: acute Pancreatitis type: other Acute pancreatitis complication: no infection or necrosis Qualified Code(s): K85.80 - Other acute pancreatitis without necrosis or infection (2) Fever Impression: She has been afebrile now for the past [address] obtained yesterday showed mild progression of the inflammatory changes which we suspect related to pancreatitis. No obvious source of infection. Her chest x-ray is consistent with atelectasis and her urinalysis was unremarkable. Blood cultures have been negative to date. I suspect her fevers were likely related to the pancreatitis. We will continue to monitor and hold antibiotics. (3) Hypertriglyceridemia Impression: Her lipids are elevated but improving. They are now down to just a little over 1000. She has been started on fenofibrate and he will continue Lipitor. We will keep her on insulin IV given the pancreatitis until her triglycerides are less than 500. (4) Anemia Impression: Her hemoglobin has now been stable at around 10. Her iron studies are suggestive of anemia of chronic disease. There has been no evidence of bleeding. We will continue to monitor daily. (5) Cholelithiasis Impression: Evident on imaging without evidence of cholecystitis. As mentioned previously, I do not believe this is the cause of her pancreatitis. Will discuss with general surgery if there is a role for cholecystectomy at this point or to hold off unless she has another episode of pancreatitis. (6) Controlled type 2 diabetes mellitus Impression: Her blood glucose has been controlled on the insulin drip. She was dropping into the 70s and so we increased the rate of her IV fluids with D5. We also decreased her insulin to 6 units an hour. We will continue to monitor with hourly blood glucose checks and adjust as needed. Clear liquid diet. (7) History of migraine Impression: Stable. Continue home medications. (8) Hypokalemia Impression: This has now resolved.
[2020-12-09 07:54] LABS: BUN - BLOOD UREA NITROGEN < 5 mg/dL (6-20); CALCIUM 8.3 mg/dL (8.5-10.3); CARBON DIOXIDE - CO2 23 mmol/L (21-32); CHLORIDE 104 mmol/L (101-111); CREATININE 0.5 mg/dL (0.4-1.0); GFR - MDRD 137 (>89); GLUCOSE 92 mg/dL (70-100); MAGNESIUM 2.2 mg/dL (1.7-2.8); PHOSPHORUS 3.7 mg/dL (2.5-4.6); POTASSIUM 3.9 mmol/L (3.5-5.0); SODIUM 138 mmol/L (135-145)
[2020-12-09 08:01] LABS: BASOPHILS # (AUTO) 0.1 10^3/uL (0.0-0.1); BASOPHILS % (AUTO) 0.5 %; EOSINOPHILS # (AUTO) 0.3 10^3/uL (0.0-0.7); EOSINOPHILS % (AUTO) 2.9 %; HCT - HEMATOCRIT 30.3 % (37.0-47.0); HGB - HEMOGLOBIN 9.8 g/dL (12.0-16.0); LYMPHOCYTES # (AUTO) 1.6 10^3/uL (1.5-3.5); LYMPHOCYTES % (AUTO) 14.1 %; MEAN CORPUSCULAR HEMOGLOBIN 27.7 pg (27.0-31.0); MEAN CORPUSCULAR HGB CONC 32.3 g/dL (32.0-36.0); MEAN CORPUSCULAR VOLUME 85.6 fL (81.0-99.0); MEAN PLATELET VOLUME 9.9 fL (7.9-10.8); MONOCYTES # (AUTO) 0.7 10^3/uL (0.0-1.0); MONOCYTES % (AUTO) 6.3 %; NEUTROPHILS # (AUTO) 8.4 10^3/uL (1.5-6.6); NEUTROPHILS % (AUTO) 75.7 %; PLT - PLATELET COUNT 297 10^3/uL (130-450); RED BLOOD COUNT 3.54 10^6/uL (4.20-5.40); RED CELL DISTRIBUTION WIDTH 13.6 % (12.0-15.0)
[2020-12-09 08:43] LABS: ALBUMIN 2.8 g/dL (3.2-5.5); ALKALINE PHOSPHATASE 72 IU/L (42-121); ALT ALANINE AMINOTRANSFERASE 16 IU/L (10-60); AMYLASE 28 U/L (28-100); AST ASPARTATE AMINOTRANSFERASE 22 IU/L (10-42); BILIRUBIN,DIRECT 0.1 mg/dL (0.1-0.5); BILIRUBIN,TOTAL 0.3 mg/dL (0.2-1.0); CHOL/HDL RATIO 19.2 (<4.4); CHOLESTEROL 576 mg/dL; HDL CHOLESTEROL 30 mg/dL; LIPASE 22 U/L (22-51); TOTAL PROTEIN 6.7 g/dL (6.7-8.2); TRIGLYCERIDES 1060 mg/dL
[2020-12-09] MEDS: FENOFIBRATE 48 MG TABLET PO SCH (09:10)
[2020-12-09] MEDS: ENOXAPARIN 40 MG/0.4 ML SYRINGE SUBQ SCH (09:10)
[2020-12-09] MEDS: DROSPIRENONE PO SCH (09:13)
[2020-12-09] MEDS: ETHINYL ESTRADIOL PO SCH (09:13)
[2020-12-09 09:23] LABS: LDL CHOLESTEROL,DIRECT 147 mg/dL; LDLD/HDL RATIO 4.9 (<4.4)
[2020-12-09 20:11] LABS: CHOLESTEROL 580 mg/dL; HDL CHOLESTEROL 29 mg/dL; TRIGLYCERIDES 989 mg/dL
[2020-12-09] MEDS: LORATADINE 10 MG TABLET PO SCH (20:15)
[2020-12-09] MEDS: VENLAFAXINE ER 37.5 MG CAPSULE PO SCH (20:15)
[2020-12-09 20:35] LABS: LDL CHOLESTEROL,DIRECT 162 mg/dL; LDLD/HDL RATIO 5.6 (<4.4)
[2020-12-09] MEDS ORDERED: ATORVASTATIN 10 MG TABLET PO SCH (21:00)
[2020-12-10] MEDS: SODIUM CHLORIDE FLUSH 0.9% 10 ML SYRINGE IVP SCH ×2 (01:18→08:45)
[2020-12-10] MEDS: KETOROLAC 30 MG/ML VIAL IVP PRN (01:18)
[2020-12-10] MEDS: MORPHINE 2 MG/ML CARPUJECT IVP PRN ×2 (01:18→04:36)
[2020-12-10] MEDS: POTASSIUM CHLORIDE INJ 40 MEQ in DEXTROSE 5%-0.45% NACL 980 ML IV SCH ×2 (02:28→08:37)
[2020-12-10 05:00] LABS: BASOPHILS % (AUTO) 0.4 %; EOSINOPHILS # (AUTO) 0.3 10^3/uL (0.0-0.7); EOSINOPHILS % (AUTO) 3.1 %; HCT - HEMATOCRIT 30.1 % (37.0-47.0); HGB - HEMOGLOBIN 9.6 g/dL (12.0-16.0); LYMPHOCYTES # (AUTO) 1.3 10^3/uL (1.5-3.5); LYMPHOCYTES % (AUTO) 13.8 %; MEAN CORPUSCULAR HEMOGLOBIN 27.2 pg (27.0-31.0); MEAN CORPUSCULAR HGB CONC 31.9 g/dL (32.0-36.0); MEAN CORPUSCULAR VOLUME 85.3 fL (81.0-99.0); MEAN PLATELET VOLUME 9.7 fL (7.9-10.8); MONOCYTES # (AUTO) 0.8 10^3/uL (0.0-1.0); NEUTROPHILS # (AUTO) 6.8 10^3/uL (1.5-6.6); NEUTROPHILS % (AUTO) 72.9 %; PLT - PLATELET COUNT 337 10^3/uL (130-450); RED BLOOD COUNT 3.53 10^6/uL (4.20-5.40); RED CELL DISTRIBUTION WIDTH 13.4 % (12.0-15.0); WHITE BLOOD COUNT 9.3 x10^3/uL (4.8-10.8)
[2020-12-10 05:20] LABS: CHOL/HDL RATIO 20.4 (<4.4); CHOLESTEROL 531 mg/dL; HDL CHOLESTEROL 26 mg/dL; TRIGLYCERIDES 849 mg/dL
[2020-12-10 05:27] LABS: BUN - BLOOD UREA NITROGEN < 5 mg/dL (6-20); CALCIUM 8.9 mg/dL (8.5-10.3); CARBON DIOXIDE - CO2 22 mmol/L (21-32); CHLORIDE 106 mmol/L (101-111); CREATININE 0.5 mg/dL (0.4-1.0); GFR - MDRD 137 (>89); GLUCOSE 93 mg/dL (70-100); PHOSPHORUS 4.8 mg/dL (2.5-4.6); POTASSIUM 3.9 mmol/L (3.5-5.0); SODIUM 138 mmol/L (135-145)
[2020-12-10 05:54] LABS: LDL CHOLESTEROL,DIRECT 161 mg/dL; LDLD/HDL RATIO 6.2 (<4.4)
[2020-12-10] MEDS: ENOXAPARIN 40 MG/0.4 ML SYRINGE SUBQ SCH (08:39)
[2020-12-10] MEDS: FENOFIBRATE 48 MG TABLET PO SCH (08:40)
[2020-12-10] MEDS ORDERED: VERAPAMIL ER 120 MG TABLET PO SCH (09:00)
--- NOTE | 2020-12-10 09:28 | Discharge Plan ---
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 You are already on Zetia and Lipitor. Then there was an addition of Janumet the week before you came into the hospital. Janumet is to medications of Januvia and Metformin. Januvia has a rare complication of pancreatitis. When you first came to the hospital your triglyceride levels were so high we could not measure them. On the day of discharge you are able to eat a regular diet that is low in fat and your triglycerides are 849. Unfortunately your cholesterol is 531, LDL (bad cholesterol) is 161. Your good cholesterol which is HDL is too low at 26. Plan of Treatment: We placed you on an IV insulin drip with potassium supplementation. We did not feed you for a few days and only that you have ice chips. You are now tolerating a low-fat diet with minimal abdominal discomfort and just have bloating. 1. there is a link between oral contraceptives in people who have severe high cholesterol and triglycerides. So you may have to change your control method. 2. Please see a lipid specialist whether is a [employer] professor or needle loom weaver in follow-up. It is very important you get this under control. 3.. The combination of medicine we have you on which is Lipitor and clofibrate are known to cause muscle pain and damage. So your doctor will have to do regular blood test to make sure that is not occurring. 4. Please start a low-fat diet. Read up on the Mediterranean diet or the Eliel [place] diet and modified to your lifestyle. The leonard take-home points are increasing fruits and vegetables as much as possible, and minimizing carbohydrates and meat. Care Goals: To control your triglycerides and cholesterol to be reduce your risk of heart attack, stroke, and pancreatitis. Assessment: Patient and understand care goals and will follow through. No Smoking: If you smoke, Please STOP! Call for help. Follow-up with: BRAD JIMENEZ, [Primary Care Provider] -
--- NOTE | 2020-12-10 10:14 | DISCHARGE SUMMARY ---
"Discharge Summary Admit Date: 12/07/20 Discharge Date: 12/10/20 Discharging Provider: Suzanne Decker MD Primary Care Provider: Manuel Pineda [facility] Family Practice Code Status: Do Not Attempt Resuscitation Condition at Discharge: Good Discharge Disposition: 01 Home, Self Care - DIAGNOSES Discharge Diagnoses with Status of Each Condition: 1. Acute pancreatitis. 2. Medication reaction due to Januvia 3. Type 2 diabetes mellitus, controlled, without complication, without long- term use of insulin 4. Hypertension 5. Depression 6. Familial hyperlipidemia, mixed 7. Ongoing use of oral contraceptive - HPI History of Present Illness: This is a very pleasant 40-year-old female with a past medical history signifi cant for migraines and type 2 diabetes mellitus who presents today complaining of abdominal pain. She states her symptoms have been present for a few days now and she was seen in the emergency department and at that time was felt her pain was more related to chest pain she was diagnosed with possible pneumonia and discharged home on doxycycline. She states her pain persisted and is located over the epigastric and is about an 8 out of 10. It became more prominent and so she came back to the emergency department today. She reports no nausea or vomiting. She is able to tolerate a diet and her pain is not worse with eating. She reports no fevers or chills. She reports her stools have been soft the past few days but no diarrhea. No dysuria, urgency. She states she was just switched to Janumet from Metformin alone about a week ago for her diabetes. She is on Zetia for history of hyperlipidemia. She states her triglycerides were quite elevated in the past and it had come down but only to the 700s on fenofibrate and so she was switched to Zetia by her primary care physician. She reports no p rior history of pancreatitis. She rarely drinks and has no history of gallstones. She is on oral contraceptives. In the emergency department, she was found to be afebrile. She was tachycardic with a heart rate in the 120s. She was normotensive with a blood pressure in the 120s. She was not tachypneic and saturating well on room air. Labs were significant for a white count of 12.2 which was improved compared to yesterday. Her potassium was 2.9. Her AST and ALT were mildly elevated in the 60s and 70s which is new compared to labs from yesterday. Her T bili is normal. Lipase was 62 and her amylase was 69. Her blood was noted to be lipemic and so the panel was obtained which showed triglycerides greater than 2000. She underwent a CT of the abdomen pelvis which did show cholelithiasis without gallbladder distention. There was also evidence of acute pancreatitis with considerable inflammatory stranding across the upper area of the abdomen. Given the above findings, medicine was consulted for admission. 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 No abscess. Appearance relates to acute pancreatitis with possible reactive or con commitment infectious/inflammatory gastroenteritis. Repeat CT done 24 hours later for fever shows interval progression of inflammatory changes against the greater curvature of the stomach, proximal duodenum and transverse bowel. No abscess, no fluid collection. Small right pleural effusion. Chest x-ray without any acute cardiopulmonary findings. Blood cultures negative after 2 days - HOSPITAL COURSE Hospital Course: She was placed in the intensive care unit not because of hemodynamic instability because of need for insulin drip in the empiric therapy of pancreatitis with normal amylase and lipase. We managed her secondary hyperglycemia due to the insulin drip and D5 or D10. She was n.p.o. and allowed ice chips. Started on TriCor again. And remained on Lipitor. We are aware of the drug interaction and monitor the patient carefully. After 3 days of no diet to then clear diet to then severe the restricted low-fat diet, the patient is pain-free. She does feel bloated but no nausea, diarrhea. No further fever. She did not need antibiotics. She is on oral contraceptives, has a familial dyslipidemia, and was then placed on Januvia. In and of itself Januvia has a rare risk of necrotizing pancreatitis. In this patient, I think it is a confluence of her dyslipidemia with triglycerides over 2000, oral contraceptives, diabetes, and the Januvia that all culminated in this episode. I have explained to her that she really needs to get specialty care and either needs to see an lvn or crop nutrition scientist that specializes in lipid management. All of these factors need to be taken into account, for the right treatment regimen for her. She is strongly encouraged to follow either a Mediterranean diet or Eliel Ornish diet. The main goal is to focus on fruits, vegetables, leafy greens, minimize carbohydrates and minimize fatty meats. At discharge she will be sent home on Metformin, TriCor, and her statin. She should have occasional CPK checks. Maybe set it up for every 3 months. She should be referred to specialty evaluation. It might be prudent to change her to a different oral contraceptive. The specialty evaluation opinion can weigh in on that. At discharge is at the bedside. Temperature is 36 9. Heart rate varies between 90-111. Blood pressure 119/90. Respirations 25. This entire admission she has been 16-20 and at discharge the rate of 25 Was unusual. I had nursing recheck their data and the wrong respiratory rate was placed. Her respiratory rate really is 18. She is 97% on room air. She is 5 feet 3 inches tall and weighs 81 kg. Alert, oriented, lucid. Lungs are clear to auscultation and percussion. She has a regular rate and rhythm and has been intermittently ta chycardic while here. Sinus tachycardia. No murmurs. The abdomen is slightly distended, bloated. Tenderness is with moderate palpation of the epigastrium and left upper quadrant. Much improved were it hurts tremendously with just light touch on admission. No masses palpable. Normal bowel sounds. She is able to get out of bed, walk to the bathroom, walk in her room, sitting the chair without any pain, discomfort, ataxia and she does not need an assist. Greater than 30 minutes was spent coordinating discharge. This document was made in part using voice recognition software. While efforts are made to proofread this document, sound alike and grammatical errors may occur. - ALLERGIES Allergies/Adverse Reactions: Allergies Allergy/AdvReac Type Severity Reaction Status Date / Time gatifloxacin Allergy Anaphylaxis Verified 12/06/20 20:31 promethazine [From Phenergan] Allergy Respiratory Verified 12/06/20 20:31 hydrocodone AdvReac Nausea Verified 12/06/20 20:31 - MEDICATIONS Home Medications: Ambulatory Orders Medication Instructions Recorded Confirmed Ergocalciferol [Vitamin D2] 50,000 unit PO .Thursday02/19/18 12/07/20 Venlafaxine ER [Effexor ER] 37.5 mg PO DAILY 12/05/20 12/07/20 Atorvastatin [Lipitor] 20 mg PO QPM 12/07/20 12/07/20 Ethinyl Estradiol/Drospirenone 1 tablet PO DAILY 12/07/20 12/07/20 [Ocella 3 mg-0.03 mg Tablet] Loratadine [Allergy Relief] 10 mg PO DAILY 12/07/20 12/07/20 Verapamil HCl [Calan Sr] 120 mg PO DAILY 12/07/20 12/07/20 Drospir/Eth Estra/Levomefol Ca 1 tab PO DAILY 12/10/20 [Beyaz 28 Tablet] Fenofibrate [Tricor] 96 mg PO DAILY #120 tablet 12/10/20 metFORMIN [Glucophage] 500 mg PO BIDWM #60 tablet 12/10/20 - LABS Result Diagrams: 12/10/20 04:50 12/10/20 04:50"
[2020-12-10 12:22] VITALS: BP 129/89
--- OUTSIDE RECORDS SUMMARY | 2020-12-12 01:22 | EXTERNAL MEDICAL SUMMARY RPT | Continuity of Care Document ---
:1980 Demographics Phone Unavailable Preferred Language Unknown Marital Status Unknown Adventist Affiliation Unknown Race Unknown Ethnic Group Unknown Author Organization [facility] Address [address] [phone] Phone Social History date description facility [phone]
== END 2020-12-10 11:55 | disposition home or self-care (01) | DRG 440 ==
LOC: ED 20:23 → ICU 12-07 00:52
PROVIDERS: ADMIT Internal Medicine; ATTEND Specialist
DX: K85.80 Other acute pancreatitis without necrosis or infection (principal); T38.3X5A Adverse effect of insulin and oral hypoglycemic [antidiabetic] drugs, initial encounter; K80.20 Calculus of gallbladder without cholecystitis without obstruction; E87.6 Hypokalemia; E78.2 Mixed hyperlipidemia; E11.65 Type 2 diabetes mellitus with hyperglycemia; I10 Essential (primary) hypertension; G43.909 Migraine, unspecified, not intractable, without status migrainosus; F32.9 Major depressive disorder, single episode, unspecified; D64.9 Anemia, unspecified; Z20.822 Contact with and (suspected) exposure to COVID-19; Z79.3 Long term (current) use of hormonal contraceptives; Z79.84 Long term (current) use of oral hypoglycemic drugs; Z79.899 Other long term (current) drug therapy
CPT/HCPCS: 0202U; 36415; 71045; 74177; 80048; 80053; 80061; 80076; 81001; 81025; 82040; 82150; 82728; 83540; 83605; 83690; 83721; 83735; 84100; 84466; 85025; 87040; 87150; 96361; 96374; 99284; 99285; A9270; J1650; J1815; J7120; Q9967; 81003; 87086

== ENCOUNTER 2024-02-22 10:15 | Outpatient (CLI) | payer OTHER ==
--- NOTE | 2024-02-23 12:37 | Mammography Report ---
UNILATERAL RIGHT DIGITAL DIAGNOSTIC MAMMOGRAM 3D/2D WITH SPOT COMPRESSION: 02/22/2024 CLINICAL: Patient returns today to evaluate multiple asymmetries in the right breast. Comparison is made to exam dated: 01/08/2024 mammogram - [facility]. The right breast is heterogeneously dense, which may obscure small masses (category c / 51-75% glandu lar tissue). There is a 2.0 cm irregular mass with an indistinct margin in the right breast at 10 o'clock middle d epth. This likely corresponds to findings seen on recent outside baseline screening mammogram, altho ugh no tomosynthesis views are available for review. There also is a 1.6 cm irregular mass with an indistinct margin in the right breast at 9 o'clock post erior depth depth. This likely corresponds to findings seen on recent outside baseline screening mamm ogram, although no tomosynthesis views are available for review. No other significant masses or calcifications are seen in the breast. IMPRESSION: INCOMPLETE: NEEDS ADDITIONAL IMAGING EVALUATION Right breast 2.0 cm irregular mass at 10 o'clock middle depth. An ultrasound is recommended for furth er evaluation and is scheduled to immediately follow this examination. Right breast 1.6 cm irregular mass at 9 o'clock posterior depth. An ultrasound is recommended for fur ther evaluation and is scheduled to immediately follow this examination. Based on Tyrer-Cuzick model (a risk assessment model), the patient's lifetime risk is 24.9% and her 1 0 year risk is 3.9%. If a patient has an elevated risk, a more comprehensive evaluation should be con sidered and/or a referral to a genetic counselor. The [place] [employer], [employer], and NCCN Guidelines advise the consideration of Breast MRI as an adjunct to screening mammog román in patients whose "Lifetime risk to develop breast cancer" is 20% or higher. This exam was interpreted at Station ID: [id number]. NOTE: For mammograms, a report in lay terms will be sent to the patient. Approximately 15% of breast malignancies will not be visualized mammographically. In the management of a palpable breast mass, a negative mammogram must not discourage biopsy of a clinically suspicious lesion. Electronically Signed By: Dawn Hameed M.D., Ph.D. eb/:02/22/2024 13:37:15 ACR BI-RADS Category 0: Incomplete 3340F PARENCHYMAL PATTERN: (D) - The breast(s) demonstrate(s) heterogeneously dense fibroglandular parenchy ma. BI-RADS CATEGORY: (0) - 0 Ultrasound [id number] Immediate follow-up LATERALITY: (B)
--- NOTE | 2024-02-23 12:37 | Ultrasound Report ---
LIMITED ULTRASOUND OF RIGHT BREAST: 02/22/2024 CLINICAL: Patient returns today to evaluate a focal asymmetry and mass in the right breast. Comparison is made to exam dated: 01/08/2024 mammogram - [facility]. Color flow ultrasound of the right breast 9-10 o'clock region was performed. Patterson scale images of th e real-time examination were reviewed. There is a 2.2 cm x 1.7 cm x 0.6 cm irregular mass with a non-circumscribed margin in the right breas t at 10 o'clock, 4 cm from the nipple. This irregular mass is hypoechoic. This correlates with mamm ography findings. Color flow imaging demonstrates that there is no vascularity present. There also is a 2.3 cm x 0.5 cm x 1.1 cm irregular mass with a non-circumscribed margin in the right breast at 9 o'clock, 8 cm from the nipple. This irregular mass is hypoechoic. This correlates with mammography findings. Color flow imaging demonstrates that there is no vascularity present. IMPRESSION: SUSPICIOUS OF MALIGNANCY 1) Right breast 2.2 cm irregular mass 10 o'clock is at a low suspicion for malignancy. An ultrasound guided biopsy is recommended. 2) Right breast 2.3 cm irregular mass at 9 o'clock, 8 cm from the nipple. Defer management pending bi opsy. If pathology is benign, recommend follow up mammogram and ultrasound in 6 months. Findings and recommendations were discussed with the patient by Dr. Lundberg during today's examination. This exam was interpreted at Station ID: [id number]. Electronically Signed By: Dawn Hameed M.D., Ph.D. eb/:02/22/2024 13:42:32 Ultrasound BI-RADS: 4a Low suspicion for malignancy BI-RADS CATEGORY: (4a) - Low Susp Biopsy [id number] Immediate follow-up LATERALITY: (R)
== END 2024-02-22 10:16 | disposition home or self-care (01) ==
LOC: DI 10:15
PROVIDERS: ATTEND Nurse Practitioner Family
DX: N63.11 Unspecified lump in the right breast, upper outer quadrant (principal); N63.15 Unspecified lump in the right breast, overlapping quadrants; R92.331 Mammographic heterogeneous density, right breast

== ENCOUNTER 2024-03-21 13:27 | Outpatient (CLI) | payer OTHER ==
[2024-03-21] MEDS ORDERED: LIDOCAINE 1%-EPI 1:100000 20 ML MDV ONE (13:40)
[2024-03-21] MEDS ORDERED: LIDOCAINE-MPF 1% 5 ML VIAL ONE (13:41)
[2024-03-21] MEDS: LIDOCAINE-MPF 1% 5 ML VIAL TD ONE (15:05)
[2024-03-21] MEDS: LIDOCAINE 1%-EPI 1:100000 20 ML MDV SUBQ ONE (15:06)
--- NOTE | 2024-03-22 09:11 | Mammography Report ---
UNILATERAL RIGHT DIGITAL DIAGNOSTIC MAMMOGRAM - RIGHT BREAST POST-PROCEDURE IMAGING FOR MARKER PLACEM ENT: 03/21/2024 CLINICAL: Post right breast ultrasound biopsy clip placement imaging. Comparison is made to exams dated: 02/22/2024 mammogram - [facility] and 01/08/2024 m ammogram - [facility]. The right breast is heterogeneously dense, which may obscure small masses (category c / 51-75% glandu lar tissue). There is a marker clip in the appropriate position in the right breast at 10 o'clock middle depth. IMPRESSION: POST PROCEDURE MAMMOGRAM FOR MARKER PLACEMENT There was a successful marker clip placement in the right breast middle depth at 10:00 Based on Tyrer-Cuzick model (a risk assessment model), the patient's lifetime risk is 25.8% and her 1 0 year risk is 4.1%. If a patient has an elevated risk, a more comprehensive evaluation should be con sidered and/or a referral to a genetic counselor. The [place] [employer], [employer], and NCCN Guidelines advise the consideration of Breast MRI as an adjunct to screening mammog román in patients whose "Lifetime risk to develop breast cancer" is 20% or higher. This exam was interpreted at Station ID: [id number]. NOTE: For mammograms, a report in lay terms will be sent to the patient. Approximately 15% of breast malignancies will not be visualized mammographically. In the management of a palpable breast mass, a negative mammogram must not discourage biopsy of a clinically suspicious lesion. Electronically Signed By: Temo Wells M.D. lc/:03/22/2024 07:46:48 ACR BI-RADS Category Post-procedure mammogram for marker placement PARENCHYMAL PATTERN: (D) - The breast(s) demonstrate(s) heterogeneously dense fibroglandular parenchy ma. BI-RADS CATEGORY: () - Unspecified - other recall n/a LATERALITY: (B)
--- NOTE | 2024-03-23 11:42 | Ultrasound Report ---
ULTRASOUND GUIDED BIOPSY RIGHT BREAST USING VACUUM DEVICE WITH MARKING DEVICE INSERTED AND POST MAMMO GRAPHIC IMAGIN03/21/2024 CLINICAL: Right breast mass. PATIENT CONSENT: Risks (minor bleeding, infection, vasovagal reaction and repeat procedure), benefits and alternatives were explained to the patient and written informed consent was obtained. Correlation is made to exams dated: 02/22/2024 ultrasound, 02/22/2024 mammogram - [facility], and 01/08/2024 mammogram - [facility]. An ultrasound guided biopsy using real-time ultrasound was performed for the concerning 2.2 cm x 1.7 cm x 0.6 cm mass located in the right breast at 10 o'clock anterior depth 4 cm from the nipple. This was described on the previous ultrasound report. The skin was prepped in the usual manner. Local a nesthetic was administered to the access site. A skin damien was made in the breast. The abnormality was approached from the lateral aspect. A 12 gauge biopsy needle was placed adjacent to the abnormal ity under ultrasound guidance. Once the needle was documented to be in the correct location, four sp ecimens were obtained using the Mammotome biopsy system. A clip was inserted into the biopsy cavity. Post procedure mammographic imaging demonstrates the location device at the targeted area. The spe cimens were sent to the laboratory for pathological analysis. IMPRESSION: ULTRASOUND GUIDED BIOPSY BENIGN Ultrasound guided biopsy of the 2.2 cm x 1.7 cm x 0.6 cm mass in the right breast at 10 o'clock anter ior depth 4 cm from the nipple was successful. Pathology indicates benign fibroadenoma (FA). Pathol ogy results are concordant with imaging findings. Return to annual mammogram screening schedule is recommended. Additionally, patient has an elevated lifetime risk for breast cancer of greater than 20%. Recommend consideration for screening breast MRI as an adjunct to screening mammography. This exam was interpreted at Station ID: [id number]. Temo Sheets M.D. ,aty/:03/22/2024 22:55:12 BI-RADS CATEGORY: () - RECOMMENDATION: (ANNUAL) - Recommend routine annual screening mammography. [id number] return to screening LATERALITY: (B)
== END 2024-03-21 13:28 | disposition home or self-care (01) ==
LOC: DI 13:27
PROVIDERS: ATTEND Nurse Practitioner Family
DX: D24.1 Benign neoplasm of right breast (principal)
CPT/HCPCS: 19083